=== PATIENT | male | born 1960 | race Caucasian/White ===

== ENCOUNTER 2016-07-30 05:16 | Inpatient (IN) | payer OTHER ==
[~2016-07-30] VITALS: Ht 177.8 cm; Wt 122.5 kg
[2016-07-30] VITALS (14 sets, daily range): BP systolic 120–158; BP diastolic 64–86
[~2016-07-30 05:16] MED LIST: CENTRUM SILVER1 EAC4 PO; HYDROCHLOROTHIA25 MG ORAL; LOSARTAN POTASS25 MG ORAL
[2016-07-30] MEDS ORDERED: Bacitracin 50000 Units Vial ONE ×2 (06:55→12:30)
--- NOTE | 2016-07-30 06:57 | Pre-Procedure Note/Attestation ---
Pre-Procedure Note/Attestation Complete Prior to Procedure Planned Procedure: right Procedure Narrative: End Stage Degenerative Joint Disease, Right knee. For Right Total Knee Resurfacing Indications for Procedure Pre-Operative Diagnosis: End Stage Degenerative Joint Disease, Right Knee Attestation I attest that I discussed the nature of the procedure; its benefits; risks and complications; and alternatives (and the risks and benefits of such alternatives ), prior to the procedure, with the patient (or the patient's legal lifeline representatives). I attest that, if there was a reasonable possibility of needing a blood transfusion, the patient (or the patient's legal lifeline representatives) was given the [facility] standardized written summary, pursuant to the [place] Blood Safety Act ([place] Health and Safety Code # 1645, as amended). I attest that I re-evaluated the patient just prior to the surgery and that there has been no change in the patient's H&P, except as documented below: SHELBY CARDOSO Jul 30, 2016 06:57
[2016-07-30] MEDS ORDERED: fentaNYL 100 mcg/2 mL IV ONE (07:00)
[2016-07-30] MEDS ORDERED: Midazolam 2mg/2ml Inj ONE (07:00)
[2016-07-30] MEDS ORDERED: LR 1000ml ONE (07:00)
[2016-07-30] MEDS ORDERED: Sterile Water Irrig 1000ml IRRIG ONE (07:00)
[2016-07-30] MEDS ORDERED: NS Irrig 1000ml ONE (07:00)
[2016-07-30] MEDS ORDERED: Propofol 10mg/ml 20ml IV ONE (07:00)
[2016-07-30] MEDS ORDERED: Sterile Water For Irrig 2000ml IRRIG ONE (07:00)
[2016-07-30] MEDS ORDERED: NS Irrig 2000ml IRRIG ONE (07:10)
--- NOTE | 2016-07-30 07:56 | Anethesia Preoperative Eval ---
Anesthesia Pre-op PMH/ROS General Date of Evaluation: Jul 30, 2016 Time of Evaluation: 07:00 Anesthesiologist: Yaya ASA Score: ASA 3 Mallampati Score Class I : Soft palate, uvula, fauces, pillars visible Class II: Soft palate, uvula, fauces visible Class III: Soft palate, base of uvula visible Class IV: Only hard plate visible Mallampati Classification: Class II Surgeon: Randi Diagnosis: OA right knee Surgical Procedure: Right TKR Family History: no anesthesia problems Allergies: Coded Allergies: NO KNOWN ALLERGIES (Verified Allergy, Unknown, 07/27/16) Medications: see eMAR Past Medical History Cardiovascular: Reports: HTN, Denies: CAD, DC, arrhythmia, other, valve dz Pulmonary: Denies: COPD, MARCELLUS, asthma, other Gastrointestinal/Genitourinary: Denies: CRI, ESRD, GERD, other Neurologic/Psychiatric: Denies: CVA, TIA, dementia, depression/anxiety, other Endocrine: Denies: DM, hypothyroidism, other, steroids HEENT: Denies: VENETIE (L), VENETIE (R), cataract (L), cataract (R), glaucoma, other Hematology/Immune: Denies: DVT, anemia, bleeding disorder, other Musculoskeletal/Integumentary: Reports: OA, Denies: DDD, DJD, RA, edema, other Other: obesity PMH Narrative: HTN, obesity, allergic rhinitis, OA PSxH Narrative: Lumbar surgery, knee scope Anesthesia Pre-op Phys. Exam Physician Exam Last Vital Signs Date Time Temp Pulse Resp B/P Pulse Ox O2 Delivery O2 Flow Rate FiO2 07/30/16 05:40 97.9 75 16 148/84 Room Air Constitutional: NAD Neurologic: CN 2-12 intact Cardiovascular: RRR, no M/R/G Respiratory: CTA Gastrointestinal: S/NT/ND Airway Exam Mallampati Score: Class II MO: full ROM: full Teeth: missing - Upper front Anesthesia Pre-op A/P Labs WNL Studies Pre-op Studies: EKG - NSr Risk Assessment & Plan Assessment: Obese, hypertensive male for TKR Plan: GA, LMA Status Change Before Surgery: No Pre-Antibiotics Drug: Ancef Given Within 1 Hr of Incision: Yes Time Given: 07:30 ARTIE GALVAN M.D. Jul 30, 2016 07:56
[2016-07-30] MEDS ORDERED: LR 1000ml 1,000 ML IVLG SCH (07:57)
--- NOTE | 2016-07-30 07:57 | Immediate Post-Op Evaluation ---
Immediate Post-Op Evalulation Immediate Post-Op Evalulation Procedure: Right TKR Date of Evaluation: Jul 30, 2016 Time of Evaluation: 10:00 IV Fluids: 1400 Estimated Blood Loss: 100 Urinary Output: 50 Blood Pressure Systolic: 143 Blood Pressure Diastolic: 83 Pulse Rate: 91 Respiratory Rate: 12 O2 Sat by Pulse Oximetry: 100 Temperature (Fahrenheit): 97.3 Pain Score (1-10): 0 Nausea: No Vomiting: No Complications No complication Patient Status: awake, patent, none Hydration Status: adequate Drug: Ancef 2GM Given Within 1 Hr of Incision: Yes Time Given: 07:30 ARTIE GALVAN M.D. Jul 30, 2016 07:57
[2016-07-30] MEDS ORDERED: Meperidine 25mg/ml Inj IV PRN (08:00)
[2016-07-30] MEDS ORDERED: Labetalol 5mg/ml 20ml vial IV PRN (08:00)
[2016-07-30] MEDS ORDERED: LORazepam Inj 2mg/ml 1ml IV PRN (08:00)
[2016-07-30] MEDS ORDERED: Hydromorphone 0.5mg/0.5ml inj IVP PRN (08:00)
[2016-07-30] MEDS ORDERED: LR 1000ml 1,000 ML IV SCH (08:00)
[2016-07-30] MEDS ORDERED: Rate Change PCA 1 Each MISC PRN (09:45)
[2016-07-30] MEDS ORDERED: Naloxone 0.4mg/ml Inj IVP PRN (09:45)
[2016-07-30] MEDS ORDERED: PCA HYDROmorphone 1mg/ml 30 ML IV PRN (09:45)
[2016-07-30] MEDS ORDERED: DiphenhydrAMINE 50mg/ml Inj IVP PRN (09:45)
[2016-07-30] MEDS ORDERED: LORazepam 1mg tab ORAL PRN (09:45)
--- NOTE | 2016-07-30 09:58 | Operative Note - PDOC ---
Operative Note Operative Note Chief Complaint: Right Knee Pain Pre-op Diagnosis: End Stage Degenerative Joint Disease, Right Knee Procedure: Right TKR Post-op Diagnosis: same as pre-op Operative Findings: consistent w/pre-op dx studies Surgeon: Randi Operations Consultant: JUANA Cardoso Anesthesiologist: Aristeo Anesthesia: general Specimen: yes Complications: none Condition: stable Estimated Blood Loss: minimal Drains: hemovac Implant(s) used?: Yes - Mya Natural Knee SHELBY CARDOSO Jul 30, 2016 09:58
--- NOTE | 2016-07-30 10:48 | Operative Note - Dictated ---
DATE OF OPERATION: 07/30/2016 SURGEON: Jerry Bryan M.D. DICTATION ENDED ABRUPTLY (INCOMPLETE DICTATION) Jerry Bryan M.D. DR: Kell JOB#: [id number] CC:
--- NOTE | 2016-07-30 11:18 | Operative Note - Dictated ---
DATE OF OPERATION: 07/30/2016 SURGEON: Jerry Bryan M.D. MECHANIC MARINE ENGINE: IRINA Hilario. ANESTHESIOLOGIST: Dr. Herrmann. ANESTHESIA: General endotracheal with arterial blood pressure monitoring. PREOPERATIVE DIAGNOSES: Posttraumatic arthritis, large osteochondral lesion, medial femoral condyle, Stover's weight bearing deformity and previous meniscectomy right knee. POSTOPERATIVE DIAGNOSES: Posttraumatic arthritis, large osteochondral lesion, medial femoral condyle, Stover's weight bearing deformity and previous meniscectomy right knee. OPERATIVE PROCEDURE: Total knee resurfacing arthroplasty right knee using a natural knee Filiberto with an # 1 7 mm all polyethylene cemented patella, and a size #3 ingrowth tibial base plate with 240 mm APR screws with a #4 ingrowth femur. There was a lateral release and a medium Hemovac drain used. The patient was prepped and draped in the supine position on the operating table. His leg was prepped and draped freely, was elevated, exsanguinated and a proximal tourniquet was inflated to 300 mmHg. A bolster was placed on the table to facilitate flexion during the procedure and a lateral post was also position to facilitate maintaining the knee in flexion without external rotation. The pelvis was neutralize by placing a sandbag posterior to the right hemipelvis. A medial parapatellar incision 5 inches length was made beginning along the closets and extending along the medial patella to the medial aspect of the patella ligament. Excision was carried down through the capsule and a lateral release was accomplished to allow the patella to be rotated 180 degrees on its distal insertion. Remnants of the fat PAD, which were quite inflamed and hypertrophic were removed. The posterior medial capsular ligaments were released semimembranosus and the superficial and deep medial collateral ligament at their attachment to the medial and posterior medial tibia. The patella was turned to 180 degrees and its articular surface was exposed by removing adherent marginal synovium. The patella was sized and a patellar cutting jig was used to take a minimal amount of articular surface bleeding more than 2/3 of the bony substance of the patella intact. Sizing the cut surface was size 1 patella, which was then templated and plained and anchoring drill holes were made. Trial reduction of the #1 patellar revealed good fit and good tracking. The distal femoral medullary canal was then cannulated after removing remnants of the meniscus medially and laterally and the ACL, PCL was left intact. The distal femoral medullary canal was cannulated and a guide was placed, and then the distal femoral extension cut was made accounting for weightbearing axis of rotation and slope. This car spun to that which had been templated on the weightbearing preoperative x-ray. The anterior, posterior chamfer and notch cuts were then made and a trial femoral prosthesis was positioned with good fit and good alignment. The tibia was then subluxed forward and all remnants of soft tissue were removed from its superficial surface. The tibial alignment jig was then used to account for weightbearing alignment rotation and slope. Once these three parameters were covered and checked with the outrigger, a proximal tibial cut was made. The centering punch and peripheral holes were then made and a trial tibial component was inserted with a 9 mm polyethylene. The patient had 20 degrees of flexion contracture preoperatively. He reached almost 0 degrees post resection with implant of the prosthetic components with smooth tracking and good stability. The tibia was then inserted without cement and anchored with 240 millimeter APR screws the polyethylene component was seated congruent 9 mm and was tapped into place. The femur was then inserted and again with a good fit, good contact and alignment, the knee was reduced and the patella was then cemented. All excess cement was removed and tracking and stability were checked. The tourniquet was released. Bleeders were coagulated. The medial capsule was closed with interrupted sutures of # 1 Vicryl. The subcutaneous and skin were closed in separate layers. The patient was placed in a bulky compression dressing, a medium Hemovac drain was left through the lateral release site. Blood loss was 100 mL estimated. The patient was returned recovery room in good condition. Jerry Bryan M.D. DR: Kell JOB#: [id number] CC: PEDRO
[2016-07-30] MEDS: Docusate 100mg cap ORAL SCH ×2 (12:10→18:02)
[2016-07-30] MEDS: Acetaminophen 500mg (ES) tab ORAL SCH ×2 (12:10→18:02)
[2016-07-30] MEDS: PCA shift volume MISC SCH ×2 (15:07→23:22)
[2016-07-30] MEDS: ceFAZolin sod 1 GM in D5W 55 ML IV SCH ×2 (16:02→23:50)
[2016-07-30] MEDS: Pericolace tab ORAL SCH (18:02)
[2016-07-31] VITALS (7 sets, daily range): BP systolic 115–134; BP diastolic 60–75
[2016-07-31] MEDS: PCA shift volume MISC SCH ×3 (07:06→23:00)
[2016-07-31] MEDS: ceFAZolin sod 1 GM in D5W 55 ML IV SCH ×2 (07:52→17:07)
[2016-07-31] MEDS: Pericolace tab ORAL SCH ×2 (08:32→18:21)
[2016-07-31] MEDS: Docusate 100mg cap ORAL SCH ×3 (08:32→18:21)
[2016-07-31] MEDS: Acetaminophen 500mg (ES) tab ORAL SCH ×3 (08:33→18:20)
--- NOTE | 2016-07-31 09:09 | Diagnostic Imaging Report ---
Indications: Postoperative Technique: Two views of the knee Comparison:None Findings: Two postoperative views of the right knee demonstrate total knee arthroplasty, good anatomic alignment of the prosthesis. There is a surgical drain in place. . There is postsurgical soft tissue air. Overlying skin paola. Impression: Postoperative right knee, no unusual features.
[2016-07-31] MEDS ORDERED: PCA HYDROmorphone 1mg/ml 30 ML IV PRN ×2 (09:45→22:00)
[2016-07-31 09:58] LABS: BASOPHILS % (AUTO) 1.1 % (0.0-2.0); EOSINOPHILS % (AUTO) 0.6 % (0.0-3.0); LYMPHOCYTES % (AUTO) 13.7 % (20.0-45.0); MEAN CORPUSCULAR HEMOGLOBIN 31.3 PG (27.0-31.0); MEAN CORPUSCULAR HGB CONC 34.1 G/DL (32.0-36.0); MEAN CORPUSCULAR VOLUME 92 FL (80-99); MEAN PLATELET VOLUME 8.6 FL (6.5-10.1); MONOCYTES % (AUTO) 11.9 % (1.0-10.0); NEUTROPHILS % (AUTO) 72.7 % (45.0-75.0); PLATELET COUNT 192 K/UL (150-450); RED BLOOD COUNT 4.27 M/UL (4.70-6.10); RED CELL DISTRIBUTION WIDTH 11.2 % (11.6-14.8); WHITE BLOOD COUNT 9.9 K/UL (4.8-10.8)
[2016-07-31] MEDS ORDERED: Losartan 25mg tab ORAL SCH (11:30)
[2016-07-31 19:17] LABS: TROPONIN I 1.03 ng/mL (<=0.30)
[2016-07-31 19:40] LABS: ABG ALLEN TEST POSITIVE; ABG BASE EXCESS 0.3; ABG PCO2 38.9 mmHg (35.0-45.0)
[2016-07-31] MEDS ORDERED: Aspirin EC 81mg tab ORAL SCH (20:30)
[2016-07-31] MEDS ORDERED: Enoxaparin 120 mg inj SUBQ SCH (21:00)
[2016-07-31] MEDS ORDERED: Naloxone 0.4mg/ml Inj IVP PRN (21:45)
[2016-07-31] MEDS ORDERED: DiphenhydrAMINE 50mg/ml Inj IVP PRN (21:45)
[2016-07-31] MEDS ORDERED: LORazepam 1mg tab ORAL PRN (21:45)
[2016-07-31 22:12] LABS: ANION GAP 21 (5-15); CALCIUM 8.4 mg/dL (8.6-10.2); CARBON DIOXIDE 22 mEQ/L (20-30); CHLORIDE 92 mEQ/L (98-107); CREATININE 1.1 mg/dL (0.7-1.2); GLOMERULAR FILTRATION RATE > 60 mL/min (>60); HEMOLYSIS 10; POTASSIUM 3.8 mEQ/L (3.4-4.9); SODIUM 135 mEQ/L (135-145)
[2016-07-31] MEDS: Aspirin EC 81mg tab ORAL SCH (22:13)
[2016-07-31] MEDS: Enoxaparin 120 mg inj SUBQ SCH (22:26)
[2016-07-31] MEDS ORDERED: Metoprolol 5mg/5ml Inj IVPB ONE (22:45)
[2016-07-31] MEDS: Metoprolol 50mg tab ORAL SCH (22:56)
[2016-08-01] VITALS (7 sets, daily range): BP systolic 98–119; BP diastolic 58–86
[2016-08-01] MEDS: ceFAZolin sod 1 GM in D5W 55 ML IV SCH ×4 (00:09→23:51)
[2016-08-01] MEDS ORDERED: Metoprolol Tartrate 10 MG in NS 55 ML IVPB ONE (00:15)
[2016-08-01 01:00] LABS: CREATININE 1.1 mg/dL (0.7-1.2); GLOMERULAR FILTRATION RATE > 60 mL/min (>60)
--- NOTE | 2016-08-01 01:17 | Consultation ---
DATE OF CONSULTATION: 07/31/2016 CARDIOLOGY CONSULTATION: CONSULTING PHYSICIAN: Frank Ballard M.D. REQUESTING PHYSICIANS: 1. Saleem Arriola M.D. 2. Jerry Bryan M.D. 3. Elpidio Schulz M.D. REASON FOR CONSULTATION: Postoperative evaluation for the patient with elevated troponin level. HISTORY OF PRESENT ILLNESS: This is a 56-year-old white male, postop day #1 following right total knee arthroplasty. He was ambulating today with therapy and became increasingly short of breath. He subsequently was noted to be hypoxic and tachycardic. He was placed back at bed rest and troponin level obtained, was 1.3. The patient denies any chest pain at rest however he remains hypoxic. PAST MEDICAL HISTORY: Notable for hypertension, status post lumbar laminectomy. ALLERGIES: None. MEDICATIONS: Reviewed and reconciled. SOCIAL HISTORY: Social alcohol. Former smoker. Occasional cigar use. REVIEW OF SYSTEMS: Otherwise noncontributory. PHYSICAL EXAMINATION: GENERAL: He is . He is in mild respiratory distress. VITAL SIGNS: Blood pressure is 120/70, pulse rate 140, and respiratory rate 24, and afebrile. LUNGS: With few rhonchi. CARDIAC: Regular rhythm. Rapid rate. Normal S1 and S2. ABDOMEN: Soft. EXTREMITIES: With trace edema. No calf tenderness or cords. DIAGNOSTIC DATA: EKG reveals sinus tachycardia, incomplete right bundle-branch block, and nonspecific ST-T changes. Compared to preoperative EKG, which revealed sinus rhythm with no abnormalities. LABORATORY DATA: White count is 9.9 and hemoglobin 13.4. Potassium is 3.8, BUN 18, and creatinine 1.1. IMPRESSION: This is a 56-year-old male, who is status post right knee arthroscopy and now has hypoxia, tachycardia, and an elevated troponin level. Primary considerations would include an acute myocardial infarction or pulmonary embolic event. PLAN: 1. Cardiac monitoring. 2. Beta-blockade. 3. Oral aspirin. 4. High-dose Lovenox. 5. Monitor electrolytes. 6. Serial troponin. 7. Echocardiogram. 8. We will follow. Frank Ballard M.D. DR: Rashaun JOB#: [id number] CC:
[2016-08-01 05:59] LABS: BASOPHILS % (AUTO) 0.9 % (0.0-2.0); EOSINOPHILS % (AUTO) 0.2 % (0.0-3.0); LYMPHOCYTES % (AUTO) 7.7 % (20.0-45.0); MEAN CORPUSCULAR HEMOGLOBIN 32.1 PG (27.0-31.0); MEAN CORPUSCULAR HGB CONC 34.3 G/DL (32.0-36.0); MEAN CORPUSCULAR VOLUME 94 FL (80-99); MONOCYTES % (AUTO) 12.6 % (1.0-10.0); NEUTROPHILS % (AUTO) 78.5 % (45.0-75.0); PLATELET COUNT 144 K/UL (150-450); RED BLOOD COUNT 3.59 M/UL (4.70-6.10); RED CELL DISTRIBUTION WIDTH 11.2 % (11.6-14.8); WHITE BLOOD COUNT 12.4 K/UL (4.8-10.8)
[2016-08-01 06:28] LABS: TROPONIN I 2.27 ng/mL (<=0.30)
[2016-08-01] MEDS: PCA shift volume MISC SCH (07:26)
[2016-08-01 07:28] LABS: ALANINE AMINOTRANSFERASE 13 U/L (3-41); ALBUMIN/GLOBULIN RATIO 1.2 (1.0-2.7); ANION GAP 17 (5-15); ASPARTATE AMINO TRANSFERASE 34 U/L (5-40); CARBON DIOXIDE 23 mEQ/L (20-30); CHLORIDE 93 mEQ/L (98-107); CHOLESTEROL 104 mg/dL (< 200); CHOLESTEROL/HDL RATIO 3.5 (3.3-4.4); GLOMERULAR FILTRATION RATE > 60 mL/min (>60); HEMOLYSIS 8; LDL CHOLESTEROL (CALC.) 57 mg/dL (60-99); MAGNESIUM 1.9 mg/dL (1.7-2.5); POTASSIUM 3.7 mEQ/L (3.4-4.9); SODIUM 133 mEQ/L (135-145); TOTAL PROTEIN 5.8 g/dL (6.6-8.7)
--- NOTE | 2016-08-01 08:01 | General Progress Note ---
Assessment/Plan Assessment/Plan post op NSTEMI PE respiratory insufficiency PLAN cardiology noted full dose lovenox monitor clinically await final CT result discuss with patient and surgery impression, plan, and exam edited and reviewed in detail care discussed with RN Subjective Allergies: Coded Allergies: NO KNOWN ALLERGIES (Verified Allergy, Unknown, 07/27/16) Subjective events noted being treated for PE and WA no distress at this time Objective Last 24 Hour Vital Signs Date Time Temp Pulse Resp B/P Pulse Ox O2 Delivery O2 Flow Rate FiO2 08/01/16 06:15 97.9 98 20 98/58 90 Room Air 08/01/16 04:00 15 08/01/16 04:00 98 08/01/16 04:00 97.9 98 20 98/58 90 Room Air 08/01/16 00:15 94 85/53 08/01/16 00:00 111 08/01/16 00:00 97.7 119 20 119/69 90 Room Air 07/31/16 23:53 17 07/31/16 22:56 126 117/65 07/31/16 22:50 126 117/65 07/31/16 22:00 150 07/31/16 21:42 94 Venturi Mask 10.0 45 07/31/16 21:00 Venturi Mask 10.0 45 07/31/16 20:00 17 07/31/16 20:00 97.6 128 18 120/60 98 Room Air 07/31/16 16:00 17 07/31/16 16:00 97.2 100 17 115/63 98 Room Air 07/31/16 12:14 98.1 100 18 118/72 100 Room Air 07/31/16 12:00 9 07/31/16 10:57 134/75 07/31/16 08:00 18 07/31/16 08:00 98.2 100 20 134/75 100 Room Air Intake and Output 07/31/16 08/01/16 19:00 07:00 Intake Total 960 ml 400 ml Output Total 400 ml Balance 960 ml 0 ml Intake Oral 960 ml IV Total 400 ml Output Urine Total 400 ml Laboratory Tests 07/31/16 09:50: White Blood Count 9.9, Red Blood Count 4.27L, Hemoglobin 13.4L, Hematocrit 39.2L , Mean Corpuscular Volume 92, Mean Corpuscular Hemoglobin 31.3H, Mean Corpuscular Hemoglobin Concent 34.1, Red Cell Distribution Width 11.2L, Platelet Count 192, Mean Platelet Volume 8.6, Neutrophils (%) (Auto) 72.7, Lymphocytes (%) (Auto) 13.7L, Monocytes (%) (Auto) 11.9H, Eosinophils (%) (Auto ) 0.6, Basophils (%) (Auto) 1.1 07/31/16 17:45: Arterial Blood pH 7.419, Arterial Blood Partial Pressure CO2 38.9, Arterial Blood Partial Pressure O2 57.1L, Arterial Blood HCO3 24.6, Arterial Blood Oxygen Saturation 90.7L, Arterial Blood Base Excess 0.3, Jere Test Positive 07/31/16 18:10: Sodium Level 135, Potassium Level 3.8, Chloride Level 92L, Carbon Dioxide Level 22, Anion Gap 21H, Blood Urea Nitrogen 18, Creatinine 1.1, Estimat Glomerular Filtration Rate > 60, Glucose Level 133H, Calcium Level 8.4L, Troponin I 1.03*H 08/01/16 04:00: White Blood Count 12.4H, Red Blood Count 3.59L, Hemoglobin 11.5L, Hematocrit 33.7L, Mean Corpuscular Volume 94, Mean Corpuscular Hemoglobin 32.1H, Mean Corpuscular Hemoglobin Concent 34.3, Red Cell Distribution Width 11.2L, Platelet Count 144L, Mean Platelet Volume 10.0, Neutrophils (%) (Auto) 78.5H, Lymphocytes (%) (Auto) 7.7L, Monocytes (%) (Auto) 12.6H, Eosinophils (%) (Auto) 0.2, Basophils (%) (Auto) 0.9, Sodium Level 133L, Potassium Level 3.7, Chloride Level 93L, Carbon Dioxide Level 23, Anion Gap 17H, Blood Urea Nitrogen 19, Creatinine 1.0, Estimat Glomerular Filtration Rate > 60, Glucose Level 156H, Calcium Level 8.0L, Troponin I 2.27*H, Magnesium Level 1.9, Total Bilirubin 0.7 , Aspartate Amino Transf (AST/SGOT) 34, Alanine Aminotransferase (ALT/SGPT) 13, Alkaline Phosphatase 55, Pro-B-Type Natriuretic Peptide 1162H, Total Protein 5.8L, Albumin 3.2L, Globulin 2.6, Albumin/Globulin Ratio 1.2, Triglycerides Level 85, Cholesterol Level 104, LDL Cholesterol 57L, HDL Cholesterol 30, Cholesterol/HDL Ratio 3.5 Height (Feet): 5 Height (Inches): 10.00 Weight (Pounds): 270 Objective WDWN NAD clear breath sounds bilaterally without rhonchi or wheeze [id number] without MRG NABS nontender no HSM no CCE nonfocal SONALI PUTNAM Aug 01, 2016 08:01
[2016-08-01] MEDS: Docusate 100mg cap ORAL SCH ×4 (08:31→18:29)
[2016-08-01] MEDS: Acetaminophen 500mg (ES) tab ORAL SCH ×3 (08:32→18:29)
--- NOTE | 2016-08-01 08:42 | Diagnostic Imaging Report ---
Indications: Chest pain Technique: Continuous helical CT imaging of the thorax was performed with automatic exposure control, following bolus intravenous administration of nonionic iodine contrast, on a Siemens sensation [address] scanner. Axial images reconstructed at 3 mm slice thickness and 1.5 mm interval. Coronal and sagittal images were reconstructed at 3 mm slice thickness. Coronal and sagittal two-dimensional maximum intensity projection and three-dimensional volume-rendered images were reconstructed on a stand alone workstation. CTDI volume(s): 13, 63, 39 mGy Total DLP: 1477 mGy-cm Findings: Comparison: None Multiple low-attenuation filling defects are present within multiple first and second order branches of both pulmonary arteries. Central pulmonary arteries patent without intraluminal filling defect and are not enlarged. Right ventricle appears larger in size than the left ventricle. There is a question of leftward displacement of the intraventricular septum. Heart is overall normal in size. No pericardial abnormality. No mediastinal or hilar enlarged lymph nodes other abnormal masses or fluid collections. Scattered arterial mural calcifications. Vascular nonaneurysmal. Small irregular pleural-based linear densities and dependent portions both lung bases. Lungs normally, symmetrically inflated and otherwise clear. No pleural abnormality. Chest wall soft tissues nonfocal. Imaged upper abdominal anatomy unremarkable. Disc marginal osteophytes scattered throughout thoracic spine. IMPRESSION: Bilateral pulmonary emboli with evidence of acute right heart strain. Latter feature denied in [facility] preliminary report, significant discrepancy. Attempts are being made to contact Dr. Arriola, requesting physician, by telephone at time of this dictation. Written discrepancy report sent to [facility] via their website. Pulmonary bibasal subsegmental atelectasis Mild arteriosclerosis Degenerative spondylosis
[2016-08-01] MEDS: Metoprolol 50mg tab ORAL SCH ×2 (08:59→21:41)
[2016-08-01] MEDS ORDERED: Losartan 25mg tab ORAL SCH (09:00)
[2016-08-01] MEDS ORDERED: Rate Change PCA 1 Each MISC PRN (09:00)
[2016-08-01] MEDS: Enoxaparin 120 mg inj SUBQ SCH ×2 (09:02→21:43)
[2016-08-01] MEDS: Pericolace tab ORAL SCH ×2 (09:02→18:30)
[2016-08-01] MEDS ORDERED: Norco 5mg/325mg tab ORAL PRN ×2 (09:45→13:20)
[2016-08-01] MEDS ORDERED: Norco 7.5mg/325mg tab ORAL PRN ×2 (09:45)
[2016-08-01] MEDS ORDERED: HYDROmorphone 1mg/ml Carpuject SUBQ PRN ×2 (10:00)
[2016-08-01] MEDS: DuoNeb 0.5-3(2.5)mg/3ml neb HHN PRN ×2 (10:05→22:14)
--- NOTE | 2016-08-01 13:36 | General Surgery Progress Note ---
General Surgery-Progress Note Subjective Procedure Performed Right TKR Additional Comments Right knee has decreased pain from immediate post op.Mild chest tightness. Objective Last 24 Hour Vital Signs Date Time Temp Pulse Resp B/P Pulse Ox O2 Delivery O2 Flow Rate FiO2 08/01/16 12:00 17 08/01/16 10:10 99 18 98 Nasal Cannula 2.0 08/01/16 10:06 100 18 96 Nasal Cannula 2.0 08/01/16 09:54 95 Nasal Cannula 2.0 28 08/01/16 09:54 Nasal Cannula 2.0 08/01/16 09:51 97.9 08/01/16 08:59 104/54 08/01/16 08:00 16 08/01/16 08:00 97.3 80 20 104/58 92 Room Air 08/01/16 06:15 97.9 98 20 98/58 90 Room Air 08/01/16 04:00 15 08/01/16 04:00 98 08/01/16 04:00 97.9 98 20 98/58 90 Room Air 08/01/16 00:15 94 85/53 08/01/16 00:00 111 08/01/16 00:00 97.7 119 20 119/69 90 Room Air 07/31/16 23:53 17 07/31/16 22:56 126 117/65 07/31/16 22:50 126 117/65 07/31/16 22:00 150 07/31/16 21:42 94 Venturi Mask 10.0 45 07/31/16 21:00 Venturi Mask 10.0 45 07/31/16 20:00 17 07/31/16 20:00 97.6 128 18 120/60 98 Room Air 07/31/16 16:00 17 07/31/16 16:00 97.2 100 17 115/63 98 Room Air I&O Intake and Output 07/31/16 08/01/16 19:00 07:00 Intake Total 960 ml 400 ml Output Total 400 ml Balance 960 ml 0 ml Intake Oral 960 ml IV Total 400 ml Output Urine Total 400 ml Dressing: dry Wound: clean Drains: hemovac Laboratory Tests Test 07/31/16 17:45 07/31/16 18:10 08/01/16 04:00 Arterial Blood pH 7.419 (7.350-7.450) Arterial Blood Partial Pressure CO2 38.9 mmHg (35.0-45.0) Arterial Blood Partial Pressure O2 57.1 mmHg (75.0-100.0) L Arterial Blood HCO3 24.6 mmol/L (22.0-26.0) Arterial Blood Oxygen Saturation 90.7 % (92.0-98.0) L Arterial Blood Base Excess 0.3 Jere Test Positive Sodium Level 135 mEQ/L (135-145) 133 mEQ/L (135-145) L Potassium Level 3.8 mEQ/L (3.4-4.9) 3.7 mEQ/L (3.4-4.9) Chloride Level 92 mEQ/L (98-107) L 93 mEQ/L (98-107) L Carbon Dioxide Level 22 mEQ/L (20-30) 23 mEQ/L (20-30) Anion Gap 21 (5-15) H 17 (5-15) H Blood Urea Nitrogen 18 mg/dL (7-23) 19 mg/dL (7-23) Creatinine 1.1 mg/dL (0.7-1.2) 1.0 mg/dL (0.7-1.2) Estimat Glomerular Filtration Rate > 60 mL/min (>60) > 60 mL/min (>60) Glucose Level 133 mg/dL (74-106) H 156 mg/dL (74-106) H Calcium Level 8.4 mg/dL (8.6-10.2) L 8.0 mg/dL (8.6-10.2) L Troponin I 1.03 ng/mL (<=0.30) *H 2.27 ng/mL (<=0.30) *H White Blood Count 12.4 K/UL (4.8-10.8) H Red Blood Count 3.59 M/UL (4.70-6.10) L Hemoglobin 11.5 G/DL (14.2-18.0) L Hematocrit 33.7 % (42.0-52.0) L Mean Corpuscular Volume 94 FL (80-99) Mean Corpuscular Hemoglobin 32.1 PG (27.0-31.0) H Mean Corpuscular Hemoglobin Concent 34.3 G/DL (32.0-36.0) Red Cell Distribution Width 11.2 % (11.6-14.8) L Platelet Count 144 K/UL (150-450) L Mean Platelet Volume 10.0 FL (6.5-10.1) Neutrophils (%) (Auto) 78.5 % (45.0-75.0) H Lymphocytes (%) (Auto) 7.7 % (20.0-45.0) L Monocytes (%) (Auto) 12.6 % (1.0-10.0) H Eosinophils (%) (Auto) 0.2 % (0.0-3.0) Basophils (%) (Auto) 0.9 % (0.0-2.0) Magnesium Level 1.9 mg/dL (1.7-2.5) Total Bilirubin 0.7 mg/dL (0.0-1.2) Aspartate Amino Transf (AST/SGOT) 34 U/L (5-40) Alanine Aminotransferase (ALT/SGPT) 13 U/L (3-41) Alkaline Phosphatase 55 U/L (40-129) Pro-B-Type Natriuretic Peptide 1162 pg/mL (0-125) H Total Protein 5.8 g/dL (6.6-8.7) L Albumin 3.2 g/dL (3.5-5.2) L Globulin 2.6 g/dL Albumin/Globulin Ratio 1.2 (1.0-2.7) Triglycerides Level 85 mg/dL (< 150) Cholesterol Level 104 mg/dL (< 200) LDL Cholesterol 57 mg/dL (60-99) L HDL Cholesterol 30 mg/dL (> 60) Cholesterol/HDL Ratio 3.5 (3.3-4.4) Additional Comments Patient suffered shortness of breath while out of bed with PT yesterday afternoon. Note events as outlined in Dr. Carreon consult. Dr. Cheung following (for Dr. Schulz) and Cardiology. Patient presently stable and comfortable. Will delay rehab of right knee for present. Family has been made aware of change in status. SHELBY CARDOSO Aug 01, 2016 13:36
--- NOTE | 2016-08-01 16:12 | Diagnostic Imaging Report ---
APPROVED REPORT CPT Code: 55695 Present Symptoms Lower Extremity Pain: Right Lower Extremity Edema: Right Comments: Technically difficult study. BILATERAL: Imaging reveals a patent deep venous system bilaterally. There is no evidence of thrombus within the femoral, popliteal or tibial segments. The greater saphenous veins are also within normal limits. Doppler indicates normal spontaneous flow within these segments. Technically difficult study.
[2016-08-01] MEDS: Aspirin EC 81mg tab ORAL SCH (21:41)
[2016-08-02 00:39] VITALS: BP 104/57
--- NOTE | 2016-08-02 02:48 | Progress Note ---
DATE: 08/01/2016 CARDIOLOGY PROGRESS NOTE SUBJECTIVE: The patient had shortness of breath and low range of blood pressure last night. CT angiogram confirmed acute pulmonary emboli. Troponin levels were elevated. OBJECTIVE: VITAL SIGNS: Blood pressure 98/58, pulse 96, respirations 20, and afebrile. LUNGS: Clear. CARDIAC: Regular rhythm and rate. Normal S1 and S2 with a fourth heart sound. ABDOMEN: Soft. EXTREMITIES: No edema. Surgical site with no bleeding noted. LABORATORY AND DIAGNOSTIC DATA: Echocardiogram revealed normal ejection fraction with evidence of pulmonary hypertension of moderate severity with PA systolic pressure of 46. There was no noted right ventricular failure. Labs show white count 12.4 and hemoglobin 11.5. Sodium is 133. Troponin is 2.2. Pro-natriuretic peptide is 1162. IMPRESSION: 1. Acute pulmonary embolus. 2. Acute myocardial infarction likely right ventricular pulmonary hypertension. 3. Acute diastolic congestive heart failure. 4. Critical condition following a right total knee arthroplasty. PLAN: 1. Continue beta-sarah. 2. Continue full anticoagulation. 3. Continue anti-platelet therapy with aspirin. 4. Avoid volume depletion in this clinical setting. 5. Follow up laboratory studies. 6. Repeat EKG pending. 7. Cardiac monitoring. Frank Ballard M.D. DR: FLO JOB#: [id number] CC:
[2016-08-02 04:00] VITALS: BP 115/70
[2016-08-02] MEDS ORDERED: DuoNeb 0.5-3(2.5)mg/3ml neb HHN PRN ×2 (04:15→16:15)
[2016-08-02] MEDS ORDERED: Norco 5mg/325mg tab ORAL PRN (05:30)
[2016-08-02] MEDS ORDERED: Norco 7.5mg/325mg tab ORAL PRN (05:45)
[2016-08-02 08:00] VITALS: BP 113/71
[2016-08-02] MEDS ORDERED: ceFAZolin sod 1 GM in D5W 55 ML IV SCH (08:00)
--- NOTE | 2016-08-02 08:47 | General Progress Note ---
Assessment/Plan Assessment/Plan post op NSTEMI PE respiratory status stable family history of clotting disorders PLAN cardiology noted full dose lovenox ? Xarelto monitor clinically chest CT result noted discuss with patient and will need cardiology clearance impression, plan, and exam edited and reviewed in detail care discussed with RN Subjective Allergies: Coded Allergies: NO KNOWN ALLERGIES (Verified Allergy, Unknown, 07/27/16) Subjective events noted being treated for PE and [place] no distress at this time wants to go home Objective Last 24 Hour Vital Signs Date Time Temp Pulse Resp B/P Pulse Ox O2 Delivery O2 Flow Rate FiO2 08/02/16 04:00 97.7 87 18 115/70 94 Room Air 08/02/16 00:39 98.2 82 20 104/57 93 Room Air 08/02/16 00:00 90 08/01/16 22:26 92 18 96 Room Air 21 08/01/16 22:13 94 20 92 Room Air 21 08/01/16 21:41 81 114/86 08/01/16 20:11 81 18 Room Air 21 08/01/16 20:08 93 Room Air 21 08/01/16 20:08 Room Air 08/01/16 20:00 97.7 90 20 114/86 92 Room Air 08/01/16 20:00 90 08/01/16 16:00 82 08/01/16 16:00 97.2 83 19 101/65 93 Room Air 08/01/16 13:30 97.9 08/01/16 12:00 97.9 86 20 114/66 90 Room Air 08/01/16 12:00 17 08/01/16 10:10 99 18 98 Nasal Cannula 2.0 08/01/16 10:06 100 18 96 Nasal Cannula 2.0 08/01/16 09:54 95 Nasal Cannula 2.0 28 08/01/16 09:54 Nasal Cannula 2.0 08/01/16 08:59 104/54 Intake and Output 08/01/16 08/02/16 19:00 07:00 Intake Total 1165 ml 1070 ml Output Total 42 ml Balance 1165 ml 1028 ml Intake Oral 360 ml IV Total 1165 ml 710 ml Drainage Total 42 ml # Voids 4 # Bowel Movements 1 Height (Feet): 5 Height (Inches): 10.00 Weight (Pounds): 270 Objective WDWN NAD clear breath sounds bilaterally without rhonchi or wheeze [id number] without MRG NABS nontender no HSM no CCE nonfocal SONALI PUTNAM Aug 02, 2016 08:47
[2016-08-02] MEDS ORDERED: Pericolace tab ORAL SCH (09:00)
[2016-08-02] MEDS ORDERED: Enoxaparin 120 mg inj SUBQ SCH (09:00)
[2016-08-02] MEDS ORDERED: Metoprolol 50mg tab ORAL SCH (09:00)
[2016-08-02] MEDS: Acetaminophen 500mg (ES) tab ORAL SCH ×2 (09:00→13:07)
[2016-08-02 09:36] LABS: BASOPHILS % (AUTO) 1.3 % (0.0-2.0); EOSINOPHILS % (AUTO) 0.5 % (0.0-3.0); LYMPHOCYTES % (AUTO) 16.1 % (20.0-45.0); MEAN CORPUSCULAR HEMOGLOBIN 32.2 PG (27.0-31.0); MEAN CORPUSCULAR HGB CONC 36.2 G/DL (32.0-36.0); MEAN CORPUSCULAR VOLUME 89 FL (80-99); MEAN PLATELET VOLUME 10.6 FL (6.5-10.1); MONOCYTES % (AUTO) 10.5 % (1.0-10.0); NEUTROPHILS % (AUTO) 71.7 % (45.0-75.0); PLATELET COUNT 174 K/UL (150-450); RED BLOOD COUNT 3.56 M/UL (4.70-6.10); RED CELL DISTRIBUTION WIDTH 10.8 % (11.6-14.8); WHITE BLOOD COUNT 9.9 K/UL (4.8-10.8)
[2016-08-02 09:46] LABS: ANION GAP 17 (5-15); CALCIUM 7.8 mg/dL (8.6-10.2); CARBON DIOXIDE 25 mEQ/L (20-30); CHLORIDE 94 mEQ/L (98-107); CREATININE 0.9 mg/dL (0.7-1.2); GLOMERULAR FILTRATION RATE > 60 mL/min (>60); HEMOLYSIS 4; MAGNESIUM 1.8 mg/dL (1.7-2.5); SODIUM 136 mEQ/L (135-145)
[2016-08-02] MEDS: Docusate 100mg cap ORAL SCH ×3 (09:54→17:45)
[2016-08-02 10:23] LABS: TROPONIN I 2.62 ng/mL (<=0.30)
[2016-08-02 12:00] VITALS: BP 110/62
[2016-08-02] MEDS: ceFAZolin sod 1 GM in D5W 55 ML IV SCH (15:52)
[2016-08-02 16:00] VITALS: BP 125/64
[2016-08-02] MEDS: Pericolace tab ORAL SCH (17:44)
[2016-08-02] MEDS ORDERED: Acetaminophen 500mg (ES) tab ORAL SCH (18:00)
[2016-08-02 20:00] VITALS: BP 137/77
[2016-08-02] MEDS: Aspirin EC 81mg tab ORAL SCH (20:46)
[2016-08-02] MEDS: Metoprolol 50mg tab ORAL SCH (20:46)
[2016-08-02] MEDS: Enoxaparin 120 mg inj SUBQ SCH (20:47)
[2016-08-02] MEDS ORDERED: Aspirin EC 81mg tab ORAL SCH (21:00)
[2016-08-03] VITALS: BP 126/74
[2016-08-03] MEDS: ceFAZolin sod 1 GM in D5W 55 ML IV SCH ×3 (00:27→17:05)
--- NOTE | 2016-08-03 03:48 | Progress Note ---
DATE: 08/02/2016 CARDIOLOGY PROGRESS NOTE SUBJECTIVE: The patient denies chest pain or shortness of breath although he has not done much activity. He continues to have an elevated troponin level now at 2.62. OBJECTIVE: VITAL SIGNS: Blood pressure 137/77, pulse 86, respiratory rate 20, and oxygen saturation on room air is 94% to 95%. NECK: Supple. LUNGS: Clear. CARDIAC: Regular. Normal S1 and S2 with a fourth heart sound. ABDOMEN: Soft. EXTREMITIES: No edema. Knee surgical site is without any signs of drainage. LABORATORY DATA: Potassium 3.0. Magnesium 1.8. Albumin 3.2. LDL cholesterol 57. Echocardiogram reviewed and repeated to evaluate the right ventricle, although slight right-sided enlargement is noted, function is grossly normal. IMPRESSION: 1. Acute pulmonary embolus. 2. Status post knee arthroplasty. 3. Right ventricular myocardial infarction suspected. 4. Pulmonary hypertension. 5. Mild protein-calorie malnutrition. 6. Hypokalemia. PLAN: 1. Cardiac monitoring. 2. Replace potassium. 3. Check magnesium. 4. Continue full anticoagulation. 5. Continue monitoring for the next 48 to 72 hours until troponin levels start decreasing. Until then, limited physical activity is readvised. Frank Ballard M.D. DR: KERRI JOB#: [id number] CC:
[2016-08-03 04:00] VITALS: BP 130/74
[2016-08-03 07:00] LABS: ALANINE AMINOTRANSFERASE 12 U/L (3-41); ALBUMIN/GLOBULIN RATIO 0.9 (1.0-2.7); ANION GAP 16 (5-15); ASPARTATE AMINO TRANSFERASE 31 U/L (5-40); CALCIUM 8.2 mg/dL (8.6-10.2); CARBON DIOXIDE 26 mEQ/L (20-30); CHLORIDE 99 mEQ/L (98-107); CREATININE 0.8 mg/dL (0.7-1.2); GLOMERULAR FILTRATION RATE > 60 mL/min (>60); HEMOLYSIS 1; POTASSIUM 3.1 mEQ/L (3.4-4.9); SODIUM 141 mEQ/L (135-145); TOTAL PROTEIN 5.7 g/dL (6.6-8.7)
[2016-08-03 07:39] LABS: TROPONIN I 0.32 ng/mL (<=0.30)
[2016-08-03 08:00] VITALS: BP 103/67
[2016-08-03] MEDS: Docusate 100mg cap ORAL SCH ×3 (08:29→18:00)
[2016-08-03] MEDS: Metoprolol 50mg tab ORAL SCH ×2 (08:30→21:12)
[2016-08-03] MEDS: Pericolace tab ORAL SCH ×2 (08:30→18:00)
[2016-08-03] MEDS: Enoxaparin 120 mg inj SUBQ SCH ×2 (08:31→21:13)
--- NOTE | 2016-08-03 08:55 | General Progress Note ---
Assessment/Plan Assessment/Plan post op NSTEMI PE respiratory status stable family history of clotting disorders PLAN cardiology noted await clearance full dose lovenox ? Xarelto monitor clinically chest CT result discussed discussed with surgeon discuss with patient and will need cardiology clearance impression, plan, and exam edited and reviewed in detail care discussed with RN Subjective Allergies: Coded Allergies: NO KNOWN ALLERGIES (Verified Allergy, Unknown, 07/27/16) Subjective events noted being treated for PE and [place] on tele Objective Last 24 Hour Vital Signs Date Time Temp Pulse Resp B/P Pulse Ox O2 Delivery O2 Flow Rate FiO2 08/03/16 08:30 92 130/74 08/03/16 04:00 98.2 82 20 130/74 95 Room Air 08/03/16 04:00 92 08/03/16 00:00 98.0 77 20 126/74 95 Room Air 08/03/16 00:00 75 08/03/16 00:00 98.0 77 20 126/74 95 Room Air 08/02/16 20:52 82 18 Room Air 21 08/02/16 20:46 86 137/77 08/02/16 20:00 86 08/02/16 20:00 98.4 86 20 137/77 94 Room Air 08/02/16 16:00 82 08/02/16 16:00 98.2 86 18 125/64 93 Room Air 08/02/16 12:00 98.2 87 18 110/62 93 Room Air 08/02/16 09:56 93 113/71 Intake and Output 08/02/16 08/03/16 19:00 07:00 Intake Total 665 ml 570 ml Output Total 0 ml 70 ml Balance 665 ml 500 ml Intake Oral 540 ml 300 ml IV Total 125 ml 270 ml Drainage Total 0 ml 70 ml # Voids 3 5 Laboratory Tests 08/02/16 09:00: White Blood Count 9.9, Red Blood Count 3.56L, Hemoglobin 11.5L, Hematocrit 31.8L , Mean Corpuscular Volume 89, Mean Corpuscular Hemoglobin 32.2H, Mean Corpuscular Hemoglobin Concent 36.2H, Red Cell Distribution Width 10.8L, Platelet Count 174, Mean Platelet Volume 10.6H, Neutrophils (%) (Auto) 71.7, Lymphocytes (%) (Auto) 16.1L, Monocytes (%) (Auto) 10.5H, Eosinophils (%) (Auto ) 0.5, Basophils (%) (Auto) 1.3, Sodium Level 136, Potassium Level 3.0L, Chloride Level 94L, Carbon Dioxide Level 25, Anion Gap 17H, Blood Urea Nitrogen 17, Creatinine 0.9, Estimat Glomerular Filtration Rate > 60, Glucose Level 156H , Calcium Level 7.8L, Magnesium Level 1.8, Troponin I 2.62*H 08/03/16 03:55: Sodium Level 141, Potassium Level 3.1L, Chloride Level 99, Carbon Dioxide Level 26, Anion Gap 16H, Blood Urea Nitrogen 14, Creatinine 0.8, Estimat Glomerular Filtration Rate > 60, Glucose Level 97, Calcium Level 8.2L, Magnesium Level 2.0 , Troponin I 0.32*H, Total Bilirubin 1.0, Aspartate Amino Transf (AST/SGOT) 31, Alanine Aminotransferase (ALT/SGPT) 12, Alkaline Phosphatase 83, Pro-B-Type Natriuretic Peptide 1813H, Total Protein 5.7L, Albumin 2.8L, Globulin 2.9, Albumin/Globulin Ratio 0.9L Height (Feet): 5 Height (Inches): 10.00 Weight (Pounds): 270 Objective WDWN NAD clear breath sounds bilaterally without rhonchi or wheeze [id number] without MRG NABS nontender no HSM no CCE nonfocal SONALI PUTNAM Aug 03, 2016 08:55
[2016-08-03 12:00] VITALS: BP 120/72
[2016-08-03] MEDS ORDERED: Lisinopril 10mg tab ORAL ONE (14:15)
[2016-08-03 16:00] VITALS: BP 133/73
--- NOTE | 2016-08-03 20:20 | Progress Note ---
DATE: 08/03/2016 CARDIOLOGY PROGRESS NOTE: SUBJECTIVE: The patient with no shortness of breath and ambulating in room. He has not done more activities in bad. the patient now relates a family history of factor 5 abnormalities which his father has and the patient was not aware of this until now. He has now been made aware that his father has been on Coumadin for treatment. OBJECTIVE: VITAL SIGNS: Blood pressure 130/74, pulse 77 to 92, sinus rhythm, occasional sinus arrhythmia, and afebrile. LUNGS: Clear. CARDIAC: Regular rhythm and rate. Normal S1, S2 with a fourth heart sound. ABDOMEN: Soft. EXTREMITIES: Trace edema. LABORATORY DATA: Troponin is down to 0.32. Pro-natriuretic peptide is 1800. Potassium is 3.1. IMPRESSION: 1. Pulmonary embolus. 2. Status post total knee replacement. 3. Hypomagnesemia. 4. Hypokalemia. 5. Acute diastolic congestive heart failure. 6. Acute myocardial infarction likely involving the right ventricle. 7. Replace potassium and magnesium. 8. Add angiotensin-converting enzyme inhibitor. Consider diuresis based on clinical parameters. 9. Full anticoagulation. 10. with respect to factor deficiency and optimal anticoagulant long-term. Frank Ballard M.D. DR: Sheryl JOB#: [id number] CC:
[2016-08-03 20:22] VITALS: BP 124/71
[2016-08-03] MEDS: Aspirin EC 81mg tab ORAL SCH (21:12)
[2016-08-04] VITALS: BP 131/66
[2016-08-04] MEDS: ceFAZolin sod 1 GM in D5W 55 ML IV SCH ×3 (00:14→17:03)
[2016-08-04] MEDS: Norco 7.5mg/325mg tab ORAL PRN ×2 (00:16→21:30)
[2016-08-04 08:00] VITALS: BP 127/78
[2016-08-04] MEDS: Lisinopril 10mg tab ORAL SCH (09:00)
[2016-08-04] MEDS: Pericolace tab ORAL SCH ×2 (09:08→18:11)
[2016-08-04] MEDS: Docusate 100mg cap ORAL SCH ×3 (09:10→18:11)
[2016-08-04] MEDS: Metoprolol 50mg tab ORAL SCH ×2 (09:11→21:00)
[2016-08-04] MEDS: Enoxaparin 120 mg inj SUBQ SCH (09:13)
[2016-08-04 12:00] VITALS: BP 119/77
[2016-08-04] MEDS ORDERED: Heparin 25,000u/D5W 500ml 500 ML IV SCH (15:30)
--- NOTE | 2016-08-04 15:36 | General Progress Note ---
Assessment/Plan Assessment/Plan post op NSTEMI PE respiratory status stable family history of clotting disorders PLAN cardiology noted await clearance full dose lovenox ? Xarelto; heme evaluation pending monitor clinically impression, plan, and exam edited and reviewed in detail care discussed with RN Subjective Allergies: Coded Allergies: NO KNOWN ALLERGIES (Verified Allergy, Unknown, 07/27/16) Subjective events noted being treated for PE and [place] on tele Objective Last 24 Hour Vital Signs Date Time Temp Pulse Resp B/P Pulse Ox O2 Delivery O2 Flow Rate FiO2 08/04/16 12:00 71 08/04/16 12:00 97.0 74 21 119/77 97 Room Air 08/04/16 09:11 88 127/78 08/04/16 09:00 127/78 08/04/16 08:00 96.3 88 20 127/78 99 Room Air 08/04/16 08:00 90 08/04/16 07:40 102 18 Room Air 08/04/16 03:36 72 08/04/16 01:15 98.4 08/04/16 00:00 98.2 75 20 131/66 96 Room Air 08/04/16 00:00 74 08/03/16 21:12 88 124/71 08/03/16 20:22 98.4 88 20 124/71 96 Room Air 08/03/16 19:30 Room Air 08/03/16 19:29 95 Room Air 08/03/16 19:19 88 08/03/16 19:03 89 18 Room Air 08/03/16 16:00 97.3 19 133/73 98 Room Air Intake and Output 08/03/16 08/04/16 19:00 07:00 Intake Total 545 ml 175 ml Balance 545 ml 175 ml Intake Oral 440 ml 120 ml IV Total 105 ml 55 ml # Voids 1 3 Height (Feet): 5 Height (Inches): 10.00 Weight (Pounds): 270 Objective WDWN NAD clear breath sounds bilaterally without rhonchi or wheeze [id number] without MRG NABS nontender no HSM no CCE nonfocal SONALI PUTNAM Aug 04, 2016 15:36
[2016-08-04 16:00] VITALS: BP 137/78
[2016-08-04 16:42] LABS: FERRITIN 620 ng/mL (10-230); PSA TOTAL 1.6 ng/mL (< 3.5)
[2016-08-04] MEDS ORDERED: Heparin 5000 units/ml inj IV ONE (16:45)
[2016-08-04 16:54] LABS: ALANINE AMINOTRANSFERASE 16 U/L (3-41); ALBUMIN/GLOBULIN RATIO 1.3 (1.0-2.7); ANION GAP 16 (5-15); ASPARTATE AMINO TRANSFERASE 31 U/L (5-40); CALCIUM 8.5 mg/dL (8.6-10.2); CARBON DIOXIDE 30 mEQ/L (20-30); CHLORIDE 93 mEQ/L (98-107); CREATININE 0.8 mg/dL (0.7-1.2); GLOMERULAR FILTRATION RATE > 60 mL/min (>60); LACTATE DEHYDROGENASE 274 U/L (135-230); POTASSIUM 3.1 mEQ/L (3.4-4.9); SODIUM 139 mEQ/L (135-145); TOTAL PROTEIN 5.8 g/dL (6.6-8.7)
[2016-08-04 17:12] LABS: INR 1.1 (0.9-1.1); PROTHROMBIN TIME 11.2 SEC (9.30-11.50)
[2016-08-04] MEDS ORDERED: Warfarin Sodium 7.5mg ORAL ONE (18:30)
[2016-08-04 19:45] LABS: HEMOLYSIS 2; IRON 37 ug/dL (59-158); TOTAL IRON BINDING CAPACITY 203 ug/dL (250-400)
[2016-08-04 20:00] VITALS: BP 109/69
[2016-08-04 20:02] LABS: BILIRUBIN,DIRECT 0.2 mg/dL (0.1-0.3)
[2016-08-04] MEDS: Aspirin EC 81mg tab ORAL SCH (21:14)
[2016-08-05] VITALS: BP 135/74
[2016-08-05] MEDS: Heparin 25,000u/D5W 500ml 500 ML IV SCH ×2 (01:09→13:18)
[2016-08-05] MEDS: Norco 5mg/325mg tab ORAL PRN ×4 (01:37→15:13)
[2016-08-05 05:21] LABS: BASOPHILS % (AUTO) 1.2 % (0.0-2.0); EOSINOPHILS % (AUTO) 1.2 % (0.0-3.0); INR 1.3 (0.9-1.1); LYMPHOCYTES % (AUTO) 15.1 % (20.0-45.0); MEAN CORPUSCULAR HEMOGLOBIN 32.4 PG (27.0-31.0); MEAN CORPUSCULAR HGB CONC 35.4 G/DL (32.0-36.0); MEAN CORPUSCULAR VOLUME 92 FL (80-99); MONOCYTES % (AUTO) 11.9 % (1.0-10.0); NEUTROPHILS % (AUTO) 70.7 % (45.0-75.0); PLATELET COUNT 211 K/UL (150-450); PROTHROMBIN TIME 13.4 SEC (9.30-11.50); RED BLOOD COUNT 3.46 M/UL (4.70-6.10); RED CELL DISTRIBUTION WIDTH 11.2 % (11.6-14.8); WHITE BLOOD COUNT 8.6 K/UL (4.8-10.8)
[2016-08-05 06:07] VITALS: BP 142/74
[2016-08-05 08:00] VITALS: BP 140/71
[2016-08-05 08:07] LABS: RHEUMATOID FACTOR SCREEN 19.5 IU/mL (0.0-13.9)
--- NOTE | 2016-08-05 08:12 | General Progress Note ---
Assessment/Plan Assessment/Plan post op NSTEMI PE respiratory status stable family history of clotting disorders PLAN cardiology noted await clearance on heparin and coumadin hypercoag work up monitor clinically dc once cleared impression, plan, and exam edited and reviewed in detail care discussed with RN Subjective Allergies: Coded Allergies: NO KNOWN ALLERGIES (Verified Allergy, Unknown, 07/27/16) Subjective events noted being treated for PE and [place] on tele seen by hematology and started coumadin Objective Last 24 Hour Vital Signs Date Time Temp Pulse Resp B/P Pulse Ox O2 Delivery O2 Flow Rate FiO2 08/05/16 07:18 86 17 Room Air 08/05/16 06:07 97.0 84 20 142/74 98 Room Air 08/05/16 03:40 80 08/05/16 00:00 98.2 82 20 135/74 96 Room Air 08/04/16 23:54 81 08/04/16 21:00 87 109/69 08/04/16 20:00 99.1 87 18 109/69 92 Room Air 08/04/16 19:50 95 18 Room Air 08/04/16 18:59 81 08/04/16 16:00 97.7 86 18 137/78 98 Room Air 08/04/16 15:55 84 08/04/16 12:00 71 08/04/16 12:00 97.0 74 21 119/77 97 Room Air 08/04/16 09:11 88 127/78 08/04/16 09:00 127/78 Intake and Output 08/04/16 08/05/16 19:00 07:00 Intake Total 537.089 ml 1060.484 ml Output Total 450 ml Balance 537.089 ml 610.484 ml Intake Oral 420 ml 600 ml IV Total 117.089 ml 460.484 ml Output Urine Total 450 ml # Voids 2 Laboratory Tests 08/04/16 15:50: Erythrocyte Sedimentation Rate 105H, Hemoglobin A [Pending], Hemoglobin A2 [ Pending], Hemoglobin C [Pending], Hemoglobin F () [Pending], Hemoglobin S [ Pending], Variant Hemoglobin [Pending], Hemoglobin Electrophoresis Interp [ Pending], Hemoglobin Interpretation [Pending], Hemoglobin Solubility [Pending], Prothrombin Time 11.2, Prothromb Time International Ratio 1.1, Activated Partial Thromboplast Time 31, D-Dimer 4190H, Lupus Anticoagulant [Pending], Lupus Anticoagulant PTT Baseline [Pending], Lupus Anticoag DRVVT Screen Ratio [ Pending], DRVVT Confirmation Interpretation [Pending], Hexagonal Phase Comment [ Pending], Protein C Activity [Pending], Protein S Activity [Pending], Anti- Thrombin III Activity [Pending], Factor V Mutation [Pending], Sodium Level 139, Potassium Level 3.1L, Chloride Level 93L, Carbon Dioxide Level 30, Anion Gap 16H , Blood Urea Nitrogen 10, Creatinine 0.8, Estimat Glomerular Filtration Rate > 60, Glucose Level 99, Calcium Level 8.5L, Iron Level 37L, Total Iron Binding Capacity 203L, Percent Iron Saturation 18, Unsaturated Iron Binding 166, Ferritin 620H, Total Bilirubin 1.1, Direct Bilirubin 0.2, Aspartate Amino Transf (AST/SGOT) 31, Alanine Aminotransferase (ALT/SGPT) 16, Alkaline Phosphatase 65, Lactate Dehydrogenase 274H, Total Protein 5.8L, Albumin 3.3L, Globulin 2.5, Albumin/Globulin Ratio 1.3, Alpha Fetoprotein [Pending], Carcinoembryonic Antigen 0.8, CA 15-3 Antigen [Pending], CA 19-9 Antigen 6.65, Prostate Specific Antigen 1.6, Free Prostate Specific Antigen [Pending], Percent Free Prostate Specific Ag [Pending], Prostate Specific Antigen Total [ Pending], Vitamin B12 Level 675, Folate [Pending], Rheumatoid Factor Screen 19.5H, Heparin-PF4 Antibody Screen [Pending], Hepatitis A IgM Antibody [Pending] , Hepatitis B Surface Antigen [Pending], Hepatitis B Core IgM Antibody [Pending] , Hepatitis C Antibody [Pending], HIV (1&2) Antibody Rapid Negative 08/04/16 23:50: Activated Partial Thromboplast Time 100H 08/05/16 03:55: Prothrombin Time 13.4H, Prothromb Time International Ratio 1.3H, White Blood Count 8.6, Red Blood Count 3.46L, Hemoglobin 11.2L, Hematocrit 31.7L, Mean Corpuscular Volume 92, Mean Corpuscular Hemoglobin 32.4H, Mean Corpuscular Hemoglobin Concent 35.4, Red Cell Distribution Width 11.2L, Platelet Count 211, Mean Platelet Volume 9.0, Neutrophils (%) (Auto) 70.7, Lymphocytes (%) (Auto) 15.1L, Monocytes (%) (Auto) 11.9H, Eosinophils (%) (Auto) 1.2, Basophils (%) ( Auto) 1.2 08/05/16 06:55: Activated Partial Thromboplast Time 77H Height (Feet): 5 Height (Inches): 10.00 Weight (Pounds): 270 Objective WDWN NAD clear breath sounds bilaterally without rhonchi or wheeze [id number] without MRG NABS nontender no HSM no CCE nonfocal SONALI PUTNAM Aug 05, 2016 08:12
[2016-08-05] MEDS: Docusate 100mg cap ORAL SCH ×3 (08:40→17:11)
[2016-08-05] MEDS: Pericolace tab ORAL SCH ×2 (08:40→17:11)
[2016-08-05] MEDS: Lisinopril 10mg tab ORAL SCH (08:40)
[2016-08-05] MEDS: Metoprolol 50mg tab ORAL SCH ×2 (08:41→20:35)
--- NOTE | 2016-08-05 11:09 | Consultation ---
DATE OF CONSULTATION: 08/04/2016 NOTE: "POOR AUDIO QUALITY" HEMATOLOGY/ONCOLOGY CONSULTATION CONSULTING PHYSICIAN: Donald Mora M.D. ATTENDING PHYSICIAN: Jerry Bryan M.D. and Elpidio Schulz M.D. REASON FOR CONSULTATION: Pulmonary emboli, on hypercoagulable state. CHIEF COMPLAINT/HISTORY OF PRESENT ILLNESS: Dear Dr. Bryan and Dr. Schulz, Today, I had an opportunity to see one of your patients, who as you are aware, is a 56-year-old delightful gentleman with past medical history remarkable for hypertension, osteoarthritis, and status post lumbar laminectomy. The patient ended up to have a right total knee arthroplasty and subsequently on postoperative day #1, developed bilateral pulmonary emboli. The patient in the background does have family history of blood clotting. During coagulation it was found the patient developed acute VA as well. Hematology service was called bilateral pulmonary emboli, possible hypercoagulable state, acute VA. PAST MEDICAL HISTORY: 1. Hypertension. 2. Degenerative joint disease. 3. Status post lumbar laminectomy. 4. Status post right side total knee replacement. FAMILY HISTORY: Positive for blood clots. SOCIAL HISTORY: Social alcohol consumption, history of four months smoking. Occasional cigar use. REVIEW OF SYSTEMS: General: The patient is not in any significant distress. . Respiratory: Mild shortness of breath on exertion. Gastrointestinal: The patient claims of constipation. Neuromuscular: The patient claims of muscle aches. PHYSICAL EXAMINATION: VITAL SIGNS: T-max 97 degrees Fahrenheit, respiratory rate 20, heart rate is 80, and blood pressure 130/83. HEENT: Head is normocephalic and atraumatic. NECK: Supple. No thyroid enlargement. No lymphadenopathy. LUNGS: Decreased breath sounds bilaterally with few rhonchi at the base. HEART: S1 and S2 regular. ABDOMEN: Soft and benign. No organomegaly present. Bowel sounds present. EXTREMITIES: No cyanosis, clubbing, or edema. LABORATORY DATA: WBC 9.9, hemoglobin 11.5, hematocrit 31.8, and platelet count 174,000. INR . Troponin level of 0.32. Creatinine of 0.8. IMPRESSION: 1. Bilateral pulmonary emboli. 2. Family history of blood clotting disorder. 3. Possible hypercoagulable state. 4. Possible underlying occult malignancy. 5. History of smoking. 6. Acute myocardial infarction. 7. Anticoagulation with heparin IV/Coumadin. 8. Hypertension. 9. Osteoarthritis/degenerative joint disease. 10. Status post lumbar laminectomy. 11. Failure to thrive. RECOMMENDATION: 1. Watch count. 2. Watch coagulopathy. 3. Anemia workup. 4. Hypercoagulable state workup. 5. Maintain INR between 2.5 and 3.5. 6. Discontinue heparin subcu. 7. Cardiology followup. 8. Pulmonary followup. 9. Skin care. 10. Nutrition. 11. Close followup. Donald Mora MD DR: [place] JOB#: [id number] CC:
[2016-08-05 12:00] VITALS: BP 138/77
--- NOTE | 2016-08-05 12:42 | General Progress Note ---
Assessment/Plan Assessment/Plan IMPRESSION: 1. Bilateral pulmonary emboli is on heparin gtt and coumadin 2. Family history of blood clotting disorder. 3. Possible hypercoagulable state. 4. Possible underlying occult malignancy. 5. History of smoking. 6. Acute myocardial infarction. 7. Anticoagulation with heparin IV/Coumadin. 8. Hypertension. 9. Osteoarthritis/degenerative joint disease. 10. Status post lumbar laminectomy. 11. Failure to thrive. RECOMMENDATION: 1. Watch count. 2. Watch coagulopathy. 3. Anemia workup reviewed 4. Hypercoagulable state workup pending 5. Maintain INR between 2.0-3.0 6. Discontinue heparin subcu. 7. Cardiology followup. 8. Pulmonary followup. 9. Skin care. 10. Nutrition. 11. Close followup. Thank you, Jay Mora MD Subjective Constitutional: Reports: no symptoms HEENT: Reports: no symptoms Cardiovascular: Reports: no symptoms Respiratory: Reports: no symptoms Gastrointestinal/Abdominal: Reports: no symptoms Genitourinary: Reports: no symptoms Neurologic/Psychiatric: Reports: no symptoms Endocrine: Reports: no symptoms Hematologic/Lymphatic: Reports: no symptoms Allergies: Coded Allergies: NO KNOWN ALLERGIES (Verified Allergy, Unknown, 07/27/16) Subjective stable, no fevers, some lower ext pain, on heparin gtt Objective Last 24 Hour Vital Signs Date Time Temp Pulse Resp B/P Pulse Ox O2 Delivery O2 Flow Rate FiO2 08/05/16 12:02 97.7 08/05/16 08:41 86 142/74 08/05/16 08:40 142/74 08/05/16 08:00 97.7 95 20 140/71 95 Room Air 08/05/16 08:00 99 08/05/16 07:18 86 17 Room Air 08/05/16 06:07 97.0 84 20 142/74 98 Room Air 08/05/16 03:40 80 08/05/16 00:00 98.2 82 20 135/74 96 Room Air 08/04/16 23:54 81 08/04/16 21:00 87 109/69 08/04/16 20:00 99.1 87 18 109/69 92 Room Air 08/04/16 19:50 95 18 Room Air 08/04/16 18:59 81 08/04/16 16:00 97.7 86 18 137/78 98 Room Air 08/04/16 15:55 84 Intake and Output 08/04/16 08/05/16 19:00 07:00 Intake Total 537.089 ml 1060.484 ml Output Total 450 ml Balance 537.089 ml 610.484 ml Intake Oral 420 ml 600 ml IV Total 117.089 ml 460.484 ml Output Urine Total 450 ml # Voids 2 Laboratory Tests 08/04/16 15:50: Erythrocyte Sedimentation Rate 105H, Hemoglobin A [Pending], Hemoglobin A2 [ Pending], Hemoglobin C [Pending], Hemoglobin F () [Pending], Hemoglobin S [ Pending], Variant Hemoglobin [Pending], Hemoglobin Electrophoresis Interp [ Pending], Hemoglobin Interpretation [Pending], Hemoglobin Solubility [Pending], Prothrombin Time 11.2, Prothromb Time International Ratio 1.1, Activated Partial Thromboplast Time 31, D-Dimer 4190H, Lupus Anticoagulant [Pending], Lupus Anticoagulant PTT Baseline [Pending], Lupus Anticoag DRVVT Screen Ratio [ Pending], DRVVT Confirmation Interpretation [Pending], Hexagonal Phase Comment [ Pending], Protein C Activity [Pending], Protein S Activity [Pending], Anti- Thrombin III Activity [Pending], Factor V Mutation [Pending], Sodium Level 139, Potassium Level 3.1L, Chloride Level 93L, Carbon Dioxide Level 30, Anion Gap 16H , Blood Urea Nitrogen 10, Creatinine 0.8, Estimat Glomerular Filtration Rate > 60, Glucose Level 99, Calcium Level 8.5L, Iron Level 37L, Total Iron Binding Capacity 203L, Percent Iron Saturation 18, Unsaturated Iron Binding 166, Ferritin 620H, Total Bilirubin 1.1, Direct Bilirubin 0.2, Aspartate Amino Transf (AST/SGOT) 31, Alanine Aminotransferase (ALT/SGPT) 16, Alkaline Phosphatase 65, Lactate Dehydrogenase 274H, Total Protein 5.8L, Albumin 3.3L, Globulin 2.5, Albumin/Globulin Ratio 1.3, Alpha Fetoprotein [Pending], Carcinoembryonic Antigen 0.8, CA 15-3 Antigen [Pending], CA 19-9 Antigen 6.65, Prostate Specific Antigen 1.6, Free Prostate Specific Antigen [Pending], Percent Free Prostate Specific Ag [Pending], Prostate Specific Antigen Total [ Pending], Vitamin B12 Level 675, Folate [Pending], Rheumatoid Factor Screen 19.5H, Heparin-PF4 Antibody Screen [Pending], Hepatitis A IgM Antibody [Pending] , Hepatitis B Surface Antigen [Pending], Hepatitis B Core IgM Antibody [Pending] , Hepatitis C Antibody [Pending], HIV (1&2) Antibody Rapid Negative 08/04/16 23:50: Activated Partial Thromboplast Time 100H 08/05/16 03:55: Prothrombin Time 13.4H, Prothromb Time International Ratio 1.3H, White Blood Count 8.6, Red Blood Count 3.46L, Hemoglobin 11.2L, Hematocrit 31.7L, Mean Corpuscular Volume 92, Mean Corpuscular Hemoglobin 32.4H, Mean Corpuscular Hemoglobin Concent 35.4, Red Cell Distribution Width 11.2L, Platelet Count 211, Mean Platelet Volume 9.0, Neutrophils (%) (Auto) 70.7, Lymphocytes (%) (Auto) 15.1L, Monocytes (%) (Auto) 11.9H, Eosinophils (%) (Auto) 1.2, Basophils (%) ( Auto) 1.2 08/05/16 06:55: Activated Partial Thromboplast Time 77H Height (Feet): 5 Height (Inches): 10.00 Weight (Pounds): 270 General Appearance: no apparent distress EENT: TMs normal Neck: supple Cardiovascular: regular rhythm Respiratory/Chest: lungs clear Abdomen: non tender Extremities: non-tender Edema: no edema noted Leg (L), no edema noted Leg (R) Edema: mild edema Neurologic: alert Skin: warm/dry Jay Mora Aug 05, 2016 12:42
[2016-08-05] MEDS ORDERED: KCl 10% 40mEq/30ml liquid ORAL SCH (14:00)
[2016-08-05] MEDS: KCl 10% 40mEq/30ml liquid ORAL SCH (14:09)
[2016-08-05] MEDS ORDERED: HYDROmorphone 1mg/ml Carpuject SUBQ PRN (15:15)
[2016-08-05 16:00] VITALS: BP 136/71
[2016-08-05] MEDS ORDERED: Warfarin Sodium 7.5mg ORAL SCH (17:00)
[2016-08-05] MEDS ORDERED: Warfarin Sodium 10mg ORAL SCH (17:00)
[2016-08-05] MEDS ORDERED: Tubing IV Secondary IV ONE ×2 (17:34→22:31)
[2016-08-05 20:00] VITALS: BP 127/72
[2016-08-05] MEDS ORDERED: KCl 10% 20 mEq/15ml liquid ORAL ONE (20:00)
--- NOTE | 2016-08-05 20:04 | Cardiology Report ---
APPROVED REPORT EXAM: Two-dimensional and M-mode echocardiogram with Doppler and color Doppler. INDICATION Right ventricular function This is an limited Echo study to evaluate Right Ventricle. Normal left ventricular chamber size, systolic function. Left ventricular ejection fraction estimated to be 65 %. Mioderate RV hypokinesis . Moderate righ ventricular enlargement. Moderate righ atrial enlargement. IVC dilated at 2.8cm with slight physiologic collapse suggestive of RA pressure 20 mmHg. Moderate tricuspid regurgitation. Tricuspid systolic velocities suggests peak right ventricular systolic pressure of 52 mmHg, consistent with moderate pulmonary hypertension.
--- NOTE | 2016-08-05 20:06 | Cardiology Report ---
APPROVED REPORT EXAM: Two-dimensional and M-mode echocardiogram with Doppler and color Doppler. INDICATION Acute myocard infarction M-Mode DIMENSIONS IVSd1.1 (0.7-1.1cm)Left Atrium (MM)2.7 (1.6-4.0cm) LVDd4.3 (3.5-5.6cm)Aortic Root2.7 (2.0-3.7cm) PWd0.9 (0.7-1.1cm)Aortic Cusp Exc.1.8 (1.5-2.0cm) LVDs3.2 (2.5-4.0cm) PWs1.3 cm Normal left ventricular chamber size, systolic function and wall motion. Left ventricular ejection fraction estimated to be 60-65 %. No evidence of left ventricular hypertrophy. RV hypokinesis No evidence of pericardial fat or effusion. Mild left atrial and right ventricular enlargement by 2D. Moderate right atrial enlargement by 2D. Focal aortic valve sclerosis with adequate cusp excursion Thickened mitral valve leaflets with normal excursion. Mild mitral annulus and aortic root calcification. Pulmonic valve not well visualized. Normal tricuspid valve structure. IVC dilated at 2.5cm with minimal physiologic collapse. RA pressure of 15mmHg. A color flow and spectral Doppler study was performed and revealed: No aortic regurgitation. No mitral regurgitation. Left ventricular diastolic dysfunction grade 1. Moderate tricuspid regurgitation. Tricuspid systolic velocities suggests peak right ventricular systolic pressure of 46-51 mmHg Consistent with moderate pulmonary hypertension.
[2016-08-05] MEDS: Aspirin EC 81mg tab ORAL SCH (20:35)
[2016-08-05] MEDS: Norco 7.5mg/325mg tab ORAL PRN (21:04)
--- NOTE | 2016-08-05 23:59 | Progress Note ---
DATE: 08/04/2016 CARDIOLOGY PROGRESS NOTE SUBJECTIVE: The patient has no chest pain or shortness of breath. His leg pain is controlled. Mobilization is being initiated today at a greater rate. OBJECTIVE: VITAL SIGNS: Blood pressure 127/78, pulse 88, respirations 21, afebrile, and oxygen saturation is 97% on room air. NECK: Supple. LUNGS: Clear. CARDIAC: Regular rhythm and rate. Normal S1 and S2 with no murmur. ABDOMEN: Soft. EXTREMITIES: Revealed 1+ edema on the right associated with the knee. LABORATORY DATA: Potassium 3.1. BUN 10, creatinine 0.8, and albumin 3.3. Pro-natriuretic peptide yesterday was 1800. IMPRESSION: 1. Acute pulmonary embolus. 2. Deep vein thrombosis. 3. Acute myocardial infarction. 4. Acute diastolic congestive heart failure. 5. Mild protein calorie malnutrition. 6. Status post right total knee arthroplasty. 7. Hypokalemia. PLAN: 1. Full anticoagulation. 2. Potassium replacement. 3. Advance anti-failure and anti-ischemic regimen. 4. Hematology/Oncology evaluation for optimal anticoagulant pain control. Frank Ballard M.D. ALPESH Villalobos JOB#: [id number] CC:
[2016-08-06] VITALS: BP 141/7
[2016-08-06] MEDS: Norco 7.5mg/325mg tab ORAL PRN ×4 (00:52→17:39)
[2016-08-06] MEDS: KCl 10% 40mEq/30ml liquid ORAL SCH ×2 (01:17→13:53)
--- NOTE | 2016-08-06 01:59 | Progress Note ---
DATE: 08/05/2016 CARDIOLOGY PROGRESS NOTE SUBJECTIVE: The patient's leg swelling has increased on the right. There is tightness in the compartment. He is able to move his toes. Pulses are palpable distally. He denies shortness of breath. He has been on IV heparin and initiated warfarin since yesterday. OBJECTIVE: VITAL SIGNS: Blood pressure 138/77, pulse 74, and respirations 20. NECK: Supple. LUNGS: Clear. CARDIAC: Regular. Normal S1 and S2. ABDOMEN: Soft. EXTREMITIES: With edema on the right and tightness of the thigh. IMPRESSION: 1. Concern over bleeding in the right surgical area. As such, we will hold warfarin and reassess continued IV heparin and pending surgical re-evaluation, pulmonary embolus, and DVT, on anticoagulation. 2. Acute myocardial infarction with stable angina, on anti-ischemic regimen. 3. Acute diastolic congestive heart failure, responding to cardiac regimen at this time and asymptomatic. PLAN: We will reassess following discussion with orthopedic surgeon. We will continue titration of cardiovascular medications based on clinical parameters. Frank Ballard M.D. DR: Wilfredo JOB#: [id number] CC:
[2016-08-06] MEDS: Heparin 25,000u/D5W 500ml 500 ML IV SCH (03:26)
[2016-08-06 04:00] VITALS: BP 145/70
[2016-08-06 05:07] LABS: MEAN CORPUSCULAR HEMOGLOBIN 32.7 PG (27.0-31.0); MEAN CORPUSCULAR HGB CONC 35.7 G/DL (32.0-36.0); MEAN CORPUSCULAR VOLUME 91 FL (80-99); RED BLOOD COUNT 3.07 M/UL (4.70-6.10); RED CELL DISTRIBUTION WIDTH 12.1 % (11.6-14.8); WHITE BLOOD COUNT 10.2 K/UL (4.8-10.8)
[2016-08-06 05:08] LABS: BASOPHILS % (AUTO) 0.7 % (0.0-2.0); EOSINOPHILS % (AUTO) 1.1 % (0.0-3.0); LYMPHOCYTES % (AUTO) 14.1 % (20.0-45.0); MEAN PLATELET VOLUME 8.1 FL (6.5-10.1); MONOCYTES % (AUTO) 10.1 % (1.0-10.0); NEUTROPHILS % (AUTO) 73.9 % (45.0-75.0); PLATELET COUNT 254 K/UL (150-450)
[2016-08-06 05:44] LABS: INR 2.6 (0.9-1.1); PROTHROMBIN TIME 27.5 SEC (9.30-11.50)
[2016-08-06 05:55] LABS: ALANINE AMINOTRANSFERASE 17 U/L (3-41); ALBUMIN/GLOBULIN RATIO 0.9 (1.0-2.7); ANION GAP 15 (5-15); ASPARTATE AMINO TRANSFERASE 30 U/L (5-40); CALCIUM 8.4 mg/dL (8.6-10.2); CARBON DIOXIDE 28 mEQ/L (20-30); CHLORIDE 94 mEQ/L (98-107); CREATININE 0.7 mg/dL (0.7-1.2); GLOMERULAR FILTRATION RATE > 60 mL/min (>60); HEMOLYSIS 2; MAGNESIUM 1.8 mg/dL (1.7-2.5); POTASSIUM 3.6 mEQ/L (3.4-4.9); SODIUM 137 mEQ/L (135-145); TOTAL PROTEIN 5.9 g/dL (6.6-8.7)
[2016-08-06] MEDS ORDERED: Heparin 25,000u/D5W 500ml 500 ML IV SCH ×2 (06:01→15:25)
[2016-08-06] MEDS ORDERED: Heparin 5000 units/ml inj IV ONE (06:15)
[2016-08-06 07:04] LABS: BILIRUBIN,DIRECT 0.2 mg/dL (0.1-0.3)
[2016-08-06 08:00] VITALS: BP 133/75
[2016-08-06] MEDS: Docusate 100mg cap ORAL SCH ×3 (08:53→17:38)
[2016-08-06] MEDS: Pericolace tab ORAL SCH ×2 (08:53→17:38)
[2016-08-06] MEDS: Metoprolol 50mg tab ORAL SCH ×2 (08:54→20:45)
[2016-08-06] MEDS: Lisinopril 10mg tab ORAL SCH (08:54)
--- NOTE | 2016-08-06 10:38 | General Surgery Progress Note ---
General Surgery-Progress Note Subjective Day of Surgery: Date of Visit: 08/05/2016 Procedure Performed Right TKR Additional Comments Right Knee more swollen and ecchymotic today. Good pulses and sensation. Strength 5/5 in low leg. Objective Last 24 Hour Vital Signs Date Time Temp Pulse Resp B/P Pulse Ox O2 Delivery O2 Flow Rate FiO2 08/06/16 08:54 133/75 08/06/16 08:54 101 133/75 08/06/16 08:00 97.9 101 20 133/75 97 Room Air 08/06/16 06:42 100 18 Room Air 08/06/16 04:00 97.7 91 20 145/70 95 Room Air 08/06/16 04:00 84 08/06/16 00:00 97.9 81 20 141/7 96 Room Air 08/05/16 20:35 92 127/72 08/05/16 20:00 98.1 92 16 127/72 96 Room Air 08/05/16 19:36 92 08/05/16 19:12 89 17 Room Air 08/05/16 16:00 97.5 81 21 136/71 95 Room Air 08/05/16 15:40 80 08/05/16 12:02 97.7 08/05/16 12:00 97.9 74 20 138/77 97 Room Air 08/05/16 12:00 78 I&O Intake and Output 08/05/16 08/06/16 19:00 07:00 Intake Total 691.09 ml 917.49 ml Output Total 1000 ml Balance 691.09 ml -82.51 ml Intake Oral 260 ml 680 ml IV Total 431.09 ml 237.49 ml Output Urine Total 1000 ml # Voids 2 3 Dressing: dry Wound: clean Drains: none Laboratory Tests Test 08/06/16 03:20 White Blood Count 10.2 K/UL (4.8-10.8) Red Blood Count 3.07 M/UL (4.70-6.10) L Hemoglobin 10.0 G/DL (14.2-18.0) L Hematocrit 28.0 % (42.0-52.0) L Mean Corpuscular Volume 91 FL (80-99) Mean Corpuscular Hemoglobin 32.7 PG (27.0-31.0) H Mean Corpuscular Hemoglobin Concent 35.7 G/DL (32.0-36.0) Red Cell Distribution Width 12.1 % (11.6-14.8) Platelet Count 254 K/UL (150-450) Mean Platelet Volume 8.1 FL (6.5-10.1) Neutrophils (%) (Auto) 73.9 % (45.0-75.0) Lymphocytes (%) (Auto) 14.1 % (20.0-45.0) L Monocytes (%) (Auto) 10.1 % (1.0-10.0) H Eosinophils (%) (Auto) 1.1 % (0.0-3.0) Basophils (%) (Auto) 0.7 % (0.0-2.0) Prothrombin Time 27.5 SEC (9.30-11.50) H Prothromb Time International Ratio 2.6 (0.9-1.1) H Activated Partial Thromboplast Time 42 SEC (23-33) H Sodium Level 137 mEQ/L (135-145) Potassium Level 3.6 mEQ/L (3.4-4.9) Chloride Level 94 mEQ/L (98-107) L Carbon Dioxide Level 28 mEQ/L (20-30) Anion Gap 15 (5-15) Blood Urea Nitrogen 9 mg/dL (7-23) Creatinine 0.7 mg/dL (0.7-1.2) Estimat Glomerular Filtration Rate > 60 mL/min (>60) Glucose Level 133 mg/dL (74-106) H Calcium Level 8.4 mg/dL (8.6-10.2) L Magnesium Level 1.8 mg/dL (1.7-2.5) Total Bilirubin 1.1 mg/dL (0.0-1.2) Direct Bilirubin 0.2 mg/dL (0.1-0.3) Aspartate Amino Transf (AST/SGOT) 30 U/L (5-40) Alanine Aminotransferase (ALT/SGPT) 17 U/L (3-41) Alkaline Phosphatase 60 U/L (40-129) Pro-B-Type Natriuretic Peptide 245 pg/mL (0-125) H Total Protein 5.9 g/dL (6.6-8.7) L Albumin 2.9 g/dL (3.5-5.2) L Globulin 3.0 g/dL Albumin/Globulin Ratio 0.9 (1.0-2.7) L Additional Comments Placed right leg above patients heart on elevated foot of bed and on multiple folded blankets to aide drainage. Instructed patient to maintain this position at all times. SHELBY CARDOSO Aug 06, 2016 10:38
--- NOTE | 2016-08-06 10:41 | General Surgery Progress Note ---
General Surgery-Progress Note Subjective Procedure Performed Right TKR Additional Comments This AM 08/06/2016, observed patient with leg off raised support (Folded blankets ). Objective Last 24 Hour Vital Signs Date Time Temp Pulse Resp B/P Pulse Ox O2 Delivery O2 Flow Rate FiO2 08/06/16 08:54 133/75 08/06/16 08:54 101 133/75 08/06/16 08:00 97.9 101 20 133/75 97 Room Air 08/06/16 06:42 100 18 Room Air 08/06/16 04:00 97.7 91 20 145/70 95 Room Air 08/06/16 04:00 84 08/06/16 00:00 97.9 81 20 141/7 96 Room Air 08/05/16 20:35 92 127/72 08/05/16 20:00 98.1 92 16 127/72 96 Room Air 08/05/16 19:36 92 08/05/16 19:12 89 17 Room Air 08/05/16 16:00 97.5 81 21 136/71 95 Room Air 08/05/16 15:40 80 08/05/16 12:02 97.7 08/05/16 12:00 97.9 74 20 138/77 97 Room Air 08/05/16 12:00 78 I&O Intake and Output 08/05/16 08/06/16 19:00 07:00 Intake Total 691.09 ml 917.49 ml Output Total 1000 ml Balance 691.09 ml -82.51 ml Intake Oral 260 ml 680 ml IV Total 431.09 ml 237.49 ml Output Urine Total 1000 ml # Voids 2 3 Extremities: edema - Less swelling this AM in Right Leg. But needs contineous elevation! Laboratory Tests Test 08/06/16 03:20 White Blood Count 10.2 K/UL (4.8-10.8) Red Blood Count 3.07 M/UL (4.70-6.10) L Hemoglobin 10.0 G/DL (14.2-18.0) L Hematocrit 28.0 % (42.0-52.0) L Mean Corpuscular Volume 91 FL (80-99) Mean Corpuscular Hemoglobin 32.7 PG (27.0-31.0) H Mean Corpuscular Hemoglobin Concent 35.7 G/DL (32.0-36.0) Red Cell Distribution Width 12.1 % (11.6-14.8) Platelet Count 254 K/UL (150-450) Mean Platelet Volume 8.1 FL (6.5-10.1) Neutrophils (%) (Auto) 73.9 % (45.0-75.0) Lymphocytes (%) (Auto) 14.1 % (20.0-45.0) L Monocytes (%) (Auto) 10.1 % (1.0-10.0) H Eosinophils (%) (Auto) 1.1 % (0.0-3.0) Basophils (%) (Auto) 0.7 % (0.0-2.0) Prothrombin Time 27.5 SEC (9.30-11.50) H Prothromb Time International Ratio 2.6 (0.9-1.1) H Activated Partial Thromboplast Time 42 SEC (23-33) H Sodium Level 137 mEQ/L (135-145) Potassium Level 3.6 mEQ/L (3.4-4.9) Chloride Level 94 mEQ/L (98-107) L Carbon Dioxide Level 28 mEQ/L (20-30) Anion Gap 15 (5-15) Blood Urea Nitrogen 9 mg/dL (7-23) Creatinine 0.7 mg/dL (0.7-1.2) Estimat Glomerular Filtration Rate > 60 mL/min (>60) Glucose Level 133 mg/dL (74-106) H Calcium Level 8.4 mg/dL (8.6-10.2) L Magnesium Level 1.8 mg/dL (1.7-2.5) Total Bilirubin 1.1 mg/dL (0.0-1.2) Direct Bilirubin 0.2 mg/dL (0.1-0.3) Aspartate Amino Transf (AST/SGOT) 30 U/L (5-40) Alanine Aminotransferase (ALT/SGPT) 17 U/L (3-41) Alkaline Phosphatase 60 U/L (40-129) Pro-B-Type Natriuretic Peptide 245 pg/mL (0-125) H Total Protein 5.9 g/dL (6.6-8.7) L Albumin 2.9 g/dL (3.5-5.2) L Globulin 3.0 g/dL Albumin/Globulin Ratio 0.9 (1.0-2.7) L JANAE,SHELBY P.A. Aug 06, 2016 10:41
--- NOTE | 2016-08-06 11:03 | General Progress Note ---
Assessment/Plan Assessment/Plan IMPRESSION: 1. Bilateral pulmonary emboli is on heparin gtt and coumadin, therapeutic INR 2- 3 2. Family history of blood clotting disorder. 3. Possible hypercoagulable state. 4. Possible underlying occult malignancy. 5. History of smoking. 6. Acute myocardial infarction. 7. Anticoagulation with heparin IV/Coumadin. 8. Hypertension. 9. Osteoarthritis/degenerative joint disease. 10. Status post lumbar laminectomy. 11. Failure to thrive. RECOMMENDATION: 1. Watch count. 2. Watch coagulopathy. 3. Anemia workup reviewed 4. Hypercoagulable state workup pending 5. Maintain INR 2 - 3.0 6. Discontinue heparin subcu. 7. Cardiology and Pulmonary followup. 8. Skin care. 9. Nutrition. 10. Close followup. Thank you, Jay Mora MD Subjective Constitutional: Reports: no symptoms HEENT: Reports: no symptoms Cardiovascular: Reports: no symptoms Respiratory: Reports: no symptoms Gastrointestinal/Abdominal: Reports: no symptoms Genitourinary: Reports: no symptoms Neurologic/Psychiatric: Reports: no symptoms Endocrine: Reports: no symptoms Hematologic/Lymphatic: Reports: anemia Allergies: Coded Allergies: NO KNOWN ALLERGIES (Verified Allergy, Unknown, 07/27/16) Subjective stable, no fevers noted, on coumadin Objective Last 24 Hour Vital Signs Date Time Temp Pulse Resp B/P Pulse Ox O2 Delivery O2 Flow Rate FiO2 08/06/16 08:54 133/75 08/06/16 08:54 101 133/75 08/06/16 08:00 97.9 101 20 133/75 97 Room Air 08/06/16 08:00 101 08/06/16 06:42 100 18 Room Air 08/06/16 04:00 97.7 91 20 145/70 95 Room Air 08/06/16 04:00 84 08/06/16 00:00 97.9 81 20 141/7 96 Room Air 08/05/16 20:35 92 127/72 08/05/16 20:00 98.1 92 16 127/72 96 Room Air 08/05/16 19:36 92 08/05/16 19:12 89 17 Room Air 08/05/16 16:00 97.5 81 21 136/71 95 Room Air 08/05/16 15:40 80 08/05/16 12:02 97.7 08/05/16 12:00 97.9 74 20 138/77 97 Room Air 08/05/16 12:00 78 Intake and Output 08/05/16 08/06/16 19:00 07:00 Intake Total 691.09 ml 917.49 ml Output Total 1000 ml Balance 691.09 ml -82.51 ml Intake Oral 260 ml 680 ml IV Total 431.09 ml 237.49 ml Output Urine Total 1000 ml # Voids 2 3 Laboratory Tests 08/06/16 03:20: White Blood Count 10.2, Red Blood Count 3.07L, Hemoglobin 10.0L, Hematocrit 28.0L, Mean Corpuscular Volume 91, Mean Corpuscular Hemoglobin 32.7H, Mean Corpuscular Hemoglobin Concent 35.7, Red Cell Distribution Width 12.1, Platelet Count 254, Mean Platelet Volume 8.1, Neutrophils (%) (Auto) 73.9, Lymphocytes (% ) (Auto) 14.1L, Monocytes (%) (Auto) 10.1H, Eosinophils (%) (Auto) 1.1, Basophils (%) (Auto) 0.7, Prothrombin Time 27.5H, Prothromb Time International Ratio 2.6H, Activated Partial Thromboplast Time 42H, Sodium Level 137, Potassium Level 3.6, Chloride Level 94L, Carbon Dioxide Level 28, Anion Gap 15, Blood Urea Nitrogen 9, Creatinine 0.7, Estimat Glomerular Filtration Rate > 60, Glucose Level 133H, Calcium Level 8.4L, Magnesium Level 1.8, Total Bilirubin 1.1 , Direct Bilirubin 0.2, Aspartate Amino Transf (AST/SGOT) 30, Alanine Aminotransferase (ALT/SGPT) 17, Alkaline Phosphatase 60, Pro-B-Type Natriuretic Peptide 245H, Total Protein 5.9L, Albumin 2.9L, Globulin 3.0, Albumin/Globulin Ratio 0.9L Height (Feet): 5 Height (Inches): 10.00 Weight (Pounds): 270 General Appearance: no apparent distress EENT: TMs normal Neck: supple Cardiovascular: regular rhythm Respiratory/Chest: lungs clear Abdomen: soft Extremities: non-tender Edema: 1+ Leg (L), 1+ Leg (R) Neurologic: alert Skin: warm/dry Jay Mora Aug 06, 2016 11:03
--- NOTE | 2016-08-06 11:44 | General Progress Note ---
Assessment/Plan Assessment/Plan post op NSTEMI PE respiratory status stable family history of clotting disorders PLAN cardiology noted await clearance coumadin with therapeutic INR hypercoag work up pending monitor clinically dc once cleared by all impression, plan, and exam edited and reviewed in detail care discussed with RN Subjective Allergies: Coded Allergies: NO KNOWN ALLERGIES (Verified Allergy, Unknown, 07/27/16) Subjective events noted on coumadin INR 2.6 seen by surgery Objective Last 24 Hour Vital Signs Date Time Temp Pulse Resp B/P Pulse Ox O2 Delivery O2 Flow Rate FiO2 08/06/16 08:54 133/75 08/06/16 08:54 101 133/75 08/06/16 08:00 97.9 101 20 133/75 97 Room Air 08/06/16 08:00 101 08/06/16 06:42 100 18 Room Air 08/06/16 04:00 97.7 91 20 145/70 95 Room Air 08/06/16 04:00 84 08/06/16 00:00 97.9 81 20 141/7 96 Room Air 08/05/16 20:35 92 127/72 08/05/16 20:00 98.1 92 16 127/72 96 Room Air 08/05/16 19:36 92 08/05/16 19:12 89 17 Room Air 08/05/16 16:00 97.5 81 21 136/71 95 Room Air 08/05/16 15:40 80 08/05/16 12:02 97.7 08/05/16 12:00 97.9 74 20 138/77 97 Room Air 08/05/16 12:00 78 Intake and Output 08/05/16 08/06/16 19:00 07:00 Intake Total 691.09 ml 917.49 ml Output Total 1000 ml Balance 691.09 ml -82.51 ml Intake Oral 260 ml 680 ml IV Total 431.09 ml 237.49 ml Output Urine Total 1000 ml # Voids 2 3 Laboratory Tests 08/06/16 03:20: White Blood Count 10.2, Red Blood Count 3.07L, Hemoglobin 10.0L, Hematocrit 28.0L, Mean Corpuscular Volume 91, Mean Corpuscular Hemoglobin 32.7H, Mean Corpuscular Hemoglobin Concent 35.7, Red Cell Distribution Width 12.1, Platelet Count 254, Mean Platelet Volume 8.1, Neutrophils (%) (Auto) 73.9, Lymphocytes (% ) (Auto) 14.1L, Monocytes (%) (Auto) 10.1H, Eosinophils (%) (Auto) 1.1, Basophils (%) (Auto) 0.7, Prothrombin Time 27.5H, Prothromb Time International Ratio 2.6H, Activated Partial Thromboplast Time 42H, Sodium Level 137, Potassium Level 3.6, Chloride Level 94L, Carbon Dioxide Level 28, Anion Gap 15, Blood Urea Nitrogen 9, Creatinine 0.7, Estimat Glomerular Filtration Rate > 60, Glucose Level 133H, Calcium Level 8.4L, Magnesium Level 1.8, Total Bilirubin 1.1 , Direct Bilirubin 0.2, Aspartate Amino Transf (AST/SGOT) 30, Alanine Aminotransferase (ALT/SGPT) 17, Alkaline Phosphatase 60, Pro-B-Type Natriuretic Peptide 245H, Total Protein 5.9L, Albumin 2.9L, Globulin 3.0, Albumin/Globulin Ratio 0.9L Height (Feet): 5 Height (Inches): 10.00 Weight (Pounds): 270 Objective WDWN NAD clear breath sounds bilaterally without rhonchi or wheeze [id number] without MRG NABS nontender no HSM no CCE right knee swelling noted nonfocal SONALI PUTNAM Aug 06, 2016 11:44
[2016-08-06 12:00] VITALS: BP 121/69
--- NOTE | 2016-08-06 12:45 | Cardiology Report ---
APPROVED REPORT EKG Measurement Heart [id number] NM [id number] Sinus tachycardia with short NM Incomplete right bundle branch block Abnormal ECG
[2016-08-06 16:00] VITALS: BP 117/65
[2016-08-06 20:00] VITALS: BP 117/65
[2016-08-06] MEDS: Aspirin EC 81mg tab ORAL SCH (20:45)
[2016-08-07] VITALS: BP 102/59
[2016-08-07] MEDS ORDERED: Warfarin Sodium 2.5mg ORAL ONE
[2016-08-07] MEDS: Norco 7.5mg/325mg tab ORAL PRN (00:21)
--- NOTE | 2016-08-07 02:19 | Progress Note ---
DATE: 08/06/2016 CARDIOLOGY PROGRESS NOTE SUBJECTIVE: The patient has no chest pain or shortness of breath. Right knee swelling has improved. He remains on anticoagulation. OBJECTIVE: VITAL SIGNS: Blood pressure 133/75, pulse 101, respirations 20, and afebrile. NECK: Supple. LUNGS: Clear. CARDIAC: Regular. Normal S1 and S2. ABDOMEN: Soft. EXTREMITIES: 1 to 2+ edema of right lower extremity at the knee with an ecchymosis and extending distally. LABORATORY DATA: INR 2.6. Hemoglobin 10. IMPRESSION: 1. Status post right total knee arthroplasty. 2. Pulmonary embolus. 3. Hypercoagulable state. 4. Acute myocardial infarction. 5. Secondary sinus tachycardia. PLAN: 1. Discontinue IV heparin. 2. warfarin to INR goal. 3. Continue beta-sarah. 4. Discontinue aspirin to decrease bleeding complication risk. Frank Ballard M.D. DR: LYLE JOB#: [id number] CC:
[2016-08-07] MEDS: KCl 10% 40mEq/30ml liquid ORAL SCH ×2 (02:24→13:15)
[2016-08-07 04:00] VITALS: BP 105/60
[2016-08-07 04:09] LABS: ANTI THROMBIN III ACTIVITY 103 % (75-135); PROTEIN C ACTIVITY 68 % (73-180); PROTEIN S ACTIVITY 74 % (63-140)
[2016-08-07 05:10] LABS: PSA % FREE 11.3 % (.); PSA FREE 0.18 ng/mL; PSA TOTAL 1.6 ng/mL (0.0-4.0)
[2016-08-07 05:48] LABS: BASOPHILS % (AUTO) 1.3 % (0.0-2.0); EOSINOPHILS % (AUTO) 1.7 % (0.0-3.0); LYMPHOCYTES % (AUTO) 16.8 % (20.0-45.0); MEAN CORPUSCULAR HEMOGLOBIN 32.5 PG (27.0-31.0); MEAN CORPUSCULAR HGB CONC 34.1 G/DL (32.0-36.0); MEAN CORPUSCULAR VOLUME 95 FL (80-99); MEAN PLATELET VOLUME 7.8 FL (6.5-10.1); MONOCYTES % (AUTO) 7.9 % (1.0-10.0); NEUTROPHILS % (AUTO) 72.4 % (45.0-75.0); PLATELET COUNT 280 K/UL (150-450); RED BLOOD COUNT 2.89 M/UL (4.70-6.10); RED CELL DISTRIBUTION WIDTH 12.5 % (11.6-14.8); WHITE BLOOD COUNT 10.6 K/UL (4.8-10.8)
[2016-08-07 05:58] LABS: INR 2.4 (0.9-1.1); PROTHROMBIN TIME 25.3 SEC (9.30-11.50)
--- NOTE | 2016-08-07 07:47 | General Progress Note ---
Assessment/Plan Assessment/Plan post op NSTEMI PE respiratory status stable family history of clotting disorders PLAN cardiology noted coumadin with therapeutic INR hypercoag work up pending; will follow up with heme after dc monitor clinically Rx given for coumadin 7.5 daily impression, plan, and exam edited and reviewed in detail care discussed with RN Subjective Allergies: Coded Allergies: NO KNOWN ALLERGIES (Verified Allergy, Unknown, 07/27/16) Subjective events noted on coumadin INR 2.4 Objective Last 24 Hour Vital Signs Date Time Temp Pulse Resp B/P Pulse Ox O2 Delivery O2 Flow Rate FiO2 08/07/16 07:36 89 20 Room Air 21 08/07/16 04:00 89 08/07/16 04:00 98.1 105 20 105/60 96 Room Air 08/07/16 00:00 98.2 90 20 102/59 97 Room Air 08/07/16 00:00 89 08/06/16 20:45 95 117/65 08/06/16 20:00 98.1 95 18 117/65 97 Room Air 08/06/16 20:00 94 08/06/16 19:30 98 20 Room Air 21 08/06/16 16:00 83 08/06/16 16:00 97.9 83 18 117/65 Room Air 08/06/16 12:00 98.2 76 18 121/69 97 Room Air 08/06/16 12:00 78 08/06/16 08:54 133/75 08/06/16 08:54 101 133/75 08/06/16 08:00 97.9 101 20 133/75 97 Room Air 08/06/16 08:00 101 Intake and Output 08/06/16 08/07/16 19:00 07:00 Intake Total 1091.2 ml 430 ml Output Total 550 ml Balance 541.2 ml 430 ml Intake Oral 700 ml 430 ml IV Total 391.2 ml Output Urine Total 550 ml # Voids 2 7 Laboratory Tests 08/07/16 03:50: White Blood Count 10.6, Red Blood Count 2.89L, Hemoglobin 9.4L, Hematocrit 27.5L , Mean Corpuscular Volume 95, Mean Corpuscular Hemoglobin 32.5H, Mean Corpuscular Hemoglobin Concent 34.1, Red Cell Distribution Width 12.5, Platelet Count 280, Mean Platelet Volume 7.8, Neutrophils (%) (Auto) 72.4, Lymphocytes (% ) (Auto) 16.8L, Monocytes (%) (Auto) 7.9, Eosinophils (%) (Auto) 1.7, Basophils (%) (Auto) 1.3, Prothrombin Time 25.3H, Prothromb Time International Ratio 2.4H Height (Feet): 5 Height (Inches): 10.00 Weight (Pounds): 270 Objective WDWN NAD clear breath sounds bilaterally without rhonchi or wheeze [id number] without MRG NABS nontender no HSM no CCE right knee swelling noted nonfocal SONALI PUTNAM Aug 07, 2016 07:47
[2016-08-07 08:00] VITALS: BP 116/64
[2016-08-07] MEDS: Pericolace tab ORAL SCH ×2 (08:28→18:46)
[2016-08-07] MEDS: Docusate 100mg cap ORAL SCH ×3 (08:29→18:47)
[2016-08-07] MEDS: Lisinopril 10mg tab ORAL SCH (08:29)
[2016-08-07] MEDS: Metoprolol 50mg tab ORAL SCH ×2 (08:29→22:02)
[2016-08-07 12:00] VITALS: BP 103/59
[2016-08-07 13:55] LABS: CA15-3 9.2 U/mL (0.0-25.0)
[2016-08-07 14:17] LABS: HEMOGLOBIN A 97.9 % (94.0-98.0); HEMOGLOBIN A2 2.1 % (0.7-3.1)
--- NOTE | 2016-08-07 14:52 | General Progress Note ---
Assessment/Plan Assessment/Plan IMPRESSION: 1. Bilateral pulmonary emboli is on coumadin, therapeutic INR 2-3. Will need to see in hematology clinic given family hx of clots. Currently w/o evidence of underlying malignancy 2. Family history of blood clotting disorder. 3. Possible hypercoagulable state. 4. Possible underlying occult malignancy. 5. History of smoking. 6. Acute myocardial infarction. 7. Anticoagulation with heparin IV/Coumadin. 8. Hypertension. 9. Osteoarthritis/degenerative joint disease. 10. Status post lumbar laminectomy. 11. Failure to thrive. RECOMMENDATION: 1. Watch count. 2. Watch coagulopathy. 3. Anemia workup reviewed 4. Hypercoagulable state workup pending 5. Maintain INR 2 - 3 6. Continue coumadin 7. Cardiology and Pulmonary recs 8. Skin care. 9. Nutrition. 10. Close followup. Thank you, aJy Mora MD Subjective Constitutional: Reports: no symptoms HEENT: Reports: no symptoms Cardiovascular: Reports: no symptoms Respiratory: Reports: no symptoms Gastrointestinal/Abdominal: Reports: poor fluid intake Genitourinary: Reports: no symptoms Neurologic/Psychiatric: Reports: anxiety Endocrine: Reports: no symptoms Hematologic/Lymphatic: Reports: anemia Allergies: Coded Allergies: NO KNOWN ALLERGIES (Verified Allergy, Unknown, 07/27/16) Subjective stable, no fevers overnight, on coumadin Objective Last 24 Hour Vital Signs Date Time Temp Pulse Resp B/P Pulse Ox O2 Delivery O2 Flow Rate FiO2 08/07/16 12:00 81 08/07/16 12:00 98.4 20 103/59 95 Room Air 08/07/16 08:52 111 08/07/16 08:29 105/60 08/07/16 08:29 89 105/60 08/07/16 08:00 97.7 107 20 116/64 95 Room Air 08/07/16 07:36 89 20 Room Air 21 08/07/16 04:00 89 08/07/16 04:00 98.1 105 20 105/60 96 Room Air 08/07/16 00:00 98.2 90 20 102/59 97 Room Air 08/07/16 00:00 89 08/06/16 20:45 95 117/65 08/06/16 20:00 98.1 95 18 117/65 97 Room Air 08/06/16 20:00 94 08/06/16 19:30 98 20 Room Air 21 08/06/16 16:00 83 08/06/16 16:00 97.9 83 18 117/65 Room Air Intake and Output 08/06/16 08/07/16 19:00 07:00 Intake Total 1091.2 ml 430 ml Output Total 550 ml Balance 541.2 ml 430 ml Intake Oral 700 ml 430 ml IV Total 391.2 ml Output Urine Total 550 ml # Voids 2 7 Laboratory Tests 08/07/16 03:50: White Blood Count 10.6, Red Blood Count 2.89L, Hemoglobin 9.4L, Hematocrit 27.5L , Mean Corpuscular Volume 95, Mean Corpuscular Hemoglobin 32.5H, Mean Corpuscular Hemoglobin Concent 34.1, Red Cell Distribution Width 12.5, Platelet Count 280, Mean Platelet Volume 7.8, Neutrophils (%) (Auto) 72.4, Lymphocytes (% ) (Auto) 16.8L, Monocytes (%) (Auto) 7.9, Eosinophils (%) (Auto) 1.7, Basophils (%) (Auto) 1.3, Prothrombin Time 25.3H, Prothromb Time International Ratio 2.4H Height (Feet): 5 Height (Inches): 10.00 Weight (Pounds): 270 General Appearance: no apparent distress EENT: normal ENT inspection Neck: supple Cardiovascular: normal rate Respiratory/Chest: lungs clear Abdomen: non tender Extremities: non-tender Edema: no edema noted Leg (L), no edema noted Leg (R) Edema: mild edema Neurologic: alert Skin: warm/dry Jay Mora Aug 07, 2016 14:52
[2016-08-07 16:00] VITALS: BP 120/62
[2016-08-07 20:00] VITALS: BP 114/57
[2016-08-07] MEDS ORDERED: Warfarin Sodium 4mg ORAL ONE (22:30)
--- NOTE | 2016-08-07 23:59 | Progress Note ---
DATE: 08/07/2016 CARDIOLOGY PROGRESS NOTE SUBJECTIVE: Discharge planning in progress. Pain is controlled in his right leg. No signs of bleeding. Less swelling is noted. OBJECTIVE: VITAL SIGNS: Blood pressure 103/59, respirations 20, afebrile, heart rate 81 to 111, and oxygen saturation on room air 95%. LUNGS: With good breath sounds. No wheezing. CARDIAC: Regular rhythm and rate. Normal S1 and S2. ABDOMEN: Soft. EXTREMITIES: No edema other than right leg. LABORATORY DATA: INR is 2.4. IMPRESSION: Status post right knee surgery with postoperative DVT and pulmonary embolus complicated by a non ST-elevation myocardial infarction likely involving the right ventricle. Presently, hemodynamically stable with a therapeutic INR and anemia due to blood loss. PLAN: 1. Warfarin therapy to INR goal of 2.5 to 3. 2. Continue beta-sarah. 3. Discontinue angiotensin-converting enzyme inhibitor, if blood pressure trend continues to be low. Frank Ballard M.D. DR: FLO JOB#: [id number] CC:
[2016-08-08] VITALS: BP 104/60
[2016-08-08] MEDS: KCl 10% 40mEq/30ml liquid ORAL SCH ×2 (02:53→13:20)
[2016-08-08 04:00] VITALS: BP 110/60
[2016-08-08 05:12] LABS: INR 2.1 (0.9-1.1)
[2016-08-08 08:00] VITALS: BP 115/60
[2016-08-08] MEDS: Docusate 100mg cap ORAL SCH ×3 (08:37→17:17)
[2016-08-08] MEDS: Lisinopril 10mg tab ORAL SCH (08:38)
[2016-08-08] MEDS: Pericolace tab ORAL SCH ×2 (08:38→16:13)
[2016-08-08] MEDS: Metoprolol 50mg tab ORAL SCH (08:38)
--- NOTE | 2016-08-08 09:45 | General Progress Note ---
Assessment/Plan Assessment/Plan post op NSTEMI PE respiratory status stable family history of clotting disorders PLAN cardiology noted coumadin with therapeutic INR hypercoag work up monitor clinically Rx given for coumadin 7.5 daily await arrangement for home health per ortho prior to dc impression, plan, and exam edited and reviewed in detail care discussed with RN Subjective Allergies: Coded Allergies: NO KNOWN ALLERGIES (Verified Allergy, Unknown, 07/27/16) Subjective events noted on coumadin INR therapeutic Objective Last 24 Hour Vital Signs Date Time Temp Pulse Resp B/P Pulse Ox O2 Delivery O2 Flow Rate FiO2 08/08/16 08:38 115/60 08/08/16 08:38 90 115/60 08/08/16 08:00 109 08/08/16 08:00 98.1 90 21 115/60 98 Room Air 08/08/16 06:45 88 20 Room Air 21 08/08/16 04:02 83 08/08/16 04:00 98.5 81 15 110/60 81 Room Air 08/08/16 00:00 98.8 81 14 104/60 81 Room Air 08/07/16 23:57 83 08/07/16 22:02 104 114/57 08/07/16 20:11 104 08/07/16 20:00 99.3 66 19 114/57 92 Room Air 08/07/16 19:00 91 20 Room Air 21 08/07/16 16:00 98.1 94 18 120/62 97 Room Air 08/07/16 15:51 95 08/07/16 12:00 81 08/07/16 12:00 98.4 20 103/59 95 Room Air Intake and Output 08/07/16 08/08/16 19:00 07:00 Intake Total 900 ml 700 ml Balance 900 ml 700 ml Intake Oral 900 ml 700 ml # Voids 3 # Bowel Movements 1 Laboratory Tests 08/08/16 04:05: Prothrombin Time 22.0H, Prothromb Time International Ratio 2.1H Height (Feet): 5 Height (Inches): 10.00 Weight (Pounds): 270 Objective WDWN NAD clear breath sounds bilaterally without rhonchi or wheeze [id number] without MRG NABS nontender no HSM no CCE right knee swelling noted nonfocal SONALI PUTNAM Aug 08, 2016 09:45
[2016-08-08 12:00] VITALS: BP 100/61
[2016-08-08 16:00] VITALS: BP 108/58
[2016-08-08] MEDS: Norco 7.5mg/325mg tab ORAL PRN (16:15)
--- NOTE | 2016-08-08 17:38 | General Progress Note ---
Assessment/Plan Assessment/Plan IMPRESSION: 1. Bilateral pulmonary emboli is on coumadin, therapeutic INR 2-3. Will need to see in hematology clinic given family hx of clots. Currently w/o evidence of underlying malignancy 2. Family history of blood clotting disorder. 3. Possible hypercoagulable state. 4. Possible underlying occult malignancy. 5. History of smoking. 6. Acute myocardial infarction. 7. Anticoagulation with heparin IV/Coumadin. 8. Hypertension. 9. Osteoarthritis/degenerative joint disease. 10. Status post lumbar laminectomy. 11. Failure to thrive. RECOMMENDATION: 1. Monitor counts 2. Watch coagulopathy. 3. Anemia workup reviewed 4. Hypercoagulable state workup pending 5. Maintain INR 2 - 3 6. Continue coumadin 7. Cardiology and Pulmonary recs 8. Skin care. 9. Nutrition. 10. Close followup. Thank you, Jay Mora MD Subjective Constitutional: Reports: no symptoms HEENT: Reports: no symptoms Cardiovascular: Reports: no symptoms Respiratory: Reports: no symptoms Gastrointestinal/Abdominal: Reports: no symptoms Genitourinary: Reports: no symptoms Neurologic/Psychiatric: Reports: no symptoms Endocrine: Reports: no symptoms Hematologic/Lymphatic: Reports: anemia Allergies: Coded Allergies: NO KNOWN ALLERGIES (Verified Allergy, Unknown, 07/27/16) Subjective no change, no fevers overnight, on coumadin Objective Last 24 Hour Vital Signs Date Time Temp Pulse Resp B/P Pulse Ox O2 Delivery O2 Flow Rate FiO2 08/08/16 17:15 98.5 08/08/16 16:00 93 08/08/16 16:00 98.5 93 18 108/58 98 Room Air 08/08/16 12:00 77 08/08/16 12:00 98.2 77 21 100/61 98 Room Air 08/08/16 08:38 115/60 08/08/16 08:38 90 115/60 08/08/16 08:00 109 08/08/16 08:00 98.1 90 21 115/60 98 Room Air 08/08/16 06:45 88 20 Room Air 21 08/08/16 04:02 83 08/08/16 04:00 98.5 81 15 110/60 81 Room Air 08/08/16 00:00 98.8 81 14 104/60 81 Room Air 08/07/16 23:57 83 08/07/16 22:02 104 114/57 2/14/17 20:11 104 08/07/16 20:00 99.3 66 19 114/57 92 Room Air 08/07/16 19:00 91 20 Room Air 21 Intake and Output 08/07/16 08/08/16 19:00 07:00 Intake Total 900 ml 700 ml Balance 900 ml 700 ml Intake Oral 900 ml 700 ml # Voids 3 # Bowel Movements 1 Laboratory Tests 08/08/16 04:05: Prothrombin Time 22.0H, Prothromb Time International Ratio 2.1H Height (Feet): 5 Height (Inches): 10.00 Weight (Pounds): 270 General Appearance: alert EENT: TMs normal Neck: supple Cardiovascular: normal rate, regular rhythm Respiratory/Chest: normal breath sounds Abdomen: non tender Extremities: non-tender Edema: 1+ Leg (L), 1+ Leg (R) Edema: mild edema Neurologic: alert Skin: normal pigmentation Jay Mora Aug 08, 2016 17:38
--- NOTE | 2016-08-09 02:19 | Progress Note ---
DATE: 08/08/2016 CARDIOLOGY PROGRESS NOTE SUBJECTIVE: The patient has no chest pain. No shortness of breath. His INR is 2.1. His left knee pain is under control. OBJECTIVE: NECK: Supple. LUNGS: Clear. Bilateral breath sounds. CARDIAC: Regular. Normal S1, S2. No murmur. EXTREMITIES: Mild edema on the right knee region only. LABORATORY DATA: INR is 2.1. IMPRESSION: 1. Status post right total knee arthroplasty. 2. Postoperative deep venous thrombosis and pulmonary embolus. 3. 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 PLAN: Outpatient followup. Anticipate need for at least 5 mg Coumadin daily, will need close monitoring of INR and adjustments based on INR results. Once more functional, stress test has been recommended to the patient for assessment of coronary flow reserve. Frank Ballard M.D. DR: IVANA JOB#: [id number] CC:
--- NOTE | 2016-08-09 18:10 | Discharge Summary ---
Discharge Summary Hospital Course Date of Admission Jul 30, 2016 at 05:16 Date of Discharge Aug 08, 2016 at 17:12 Admitting Diagnosis HPI Navarro Ngo is a 56 year old male who was admitted on Jul 30, 2016 at 05:16 for Osteoarthritis Right Knee Hospital Course [id number] Discharge Discharge Disposition Patient was discharged to Home with Home Health(06) Discharge Diagnoses: Aleena Encarnacion NP Aug 09, 2016 18:10
--- NOTE | 2016-08-10 02:39 | Discharge Summary 2 SIG ---
DATE OF ADMISSION: 07/30/2016 DATE OF DISCHARGE: 08/08/2016 SURGEON: Jerry Bryan M.D. CONSULTANTS: 1. Frank Ballard M.D. 2. Donald Mora M.D. BRIEF HOSPITAL COURSE: The patient is a 56-year-old male who was injured while at work. The date of injury was 07/17/2016 as a result, he injured his right knee. He also has numbness of the knee intermittently. The patient underwent following modalities including arthroscopy of the right knee, physical therapy, and pain management. However, the patient reports pain with prolonged standing, walking, sitting, and unable to sleep through the night due to pain and discomfort. On 07/30/2016, he underwent right total knee replacement. Following day, on postop day 1, he was ambulating with physical therapy and the patient became increasingly short of breath. He was noted to be hypoxic and tachycardic and was placed back at bedrest. Dr Ballard was consulted. Labs showed elevated troponin of 1.3. Chest CTA was done and showed bilateral pulmonary emboli with evidence of acute right heart strain. He was given full anticoagulation with Lovenox and antiplatelet therapy with aspirin. ProBNP was elevated to 1162. Echocardiogram revealed normal ejection fraction with evidence of pulmonary hypertension of moderate severity and PA systolic pressure of 46. Dr. Mora was consulted. The patient has a family history of blood disorder secondary to factor 5 deficiency. He was started on IV heparin and Coumadin. Troponin down trending. There was noted swelling on the right knee. The patient was advised leg elevation. His knee pain had been under control with less swelling of the knee. IV heparin was discontinued. INR was within goal. He was eventually discharged home with home health. FINAL DIAGNOSES: 1. Status post right total knee replacement. 2. Non-ST elevated myocardial infarction. 3. Acute pulmonary emboli. 4. Family history of clotting disorder. 5. Hypercoagulable state secondary to Coumadin use. 6. Hypertension. 7. Acute diastolic congestive heart failure. Elpidio Schulz M.D. I have been assigned to dictate discharge summary on this account and I was not involved in the patient's management. Aleena Encarnacion N.P. DR: Nikko JOB#: [id number] CC: PEDRO
--- NOTE | 2016-08-10 13:30 | Cardiology Report ---
APPROVED REPORT EKG Measurement Heart [id number] CO [id number] Normal sinus rhythm Abnormal ECG
--- NOTE | 2016-08-15 10:10 | Diagnostic Imaging Report ---
Indication: Shortness of breath, tachypnea Technique: Single portable AP view of the chest. Findings: Comparison: None. Suboptimal inspiration limits evaluation. The bones and extra pulmonary soft tissues, cardiomediastinal silhouette, pulmonary vasculature, visualized pulmonary parenchyma and pleural surfaces are unremarkable. IMPRESSION: Negative portable AP chest, limited as described. Upright PA and lateral chest radiographs with better inspiratory effort and optimal technique recommended for more complete evaluation..
== END 2016-08-08 17:12 | disposition home health service (06) | DRG 469 ==
LOC: SDSOVERFLO 05:16 → 3E 11:14 → 2W 07-31 20:49 → 3E 08-02 02:09 → 2W 08-02 13:32
PROC: 0SRC0J9 Replacement of Right Knee Joint with Synthetic Substitute, Cemented, Open Approach (ICD-10-PCS; principal; 2016-07-30 07:00)
DX: M17.11 Unilateral primary osteoarthritis, right knee (principal); I21.4 Non-ST elevation (NSTEMI) myocardial infarction; I50.31 Acute diastolic (congestive) heart failure; Z68.41 Body mass index [BMI] 40.0-44.9, adult; I26.99 Other pulmonary embolism without acute cor pulmonale; Z83.2 Family history of diseases of the blood and blood-forming organs and certain disorders involving the immune mechanism; Z79.01 Long term (current) use of anticoagulants; I10 Essential (primary) hypertension; R09.02 Hypoxemia; Z87.891 Personal history of nicotine dependence; M93.961 Osteochondropathy, unspecified, right lower leg; E87.6 Hypokalemia; D50.0 Iron deficiency anemia secondary to blood loss (chronic); E66.9 Obesity, unspecified; R79.1 Abnormal coagulation profile
CPT/HCPCS: 36415; 36600; 71010; 71275; 80048; 80053; 80061; 81241; 82105; 82248; 82378; 82565; 82607; 82728; 82746; 82803; 83020; 83540; 83550; 83615; 83735; 83880; 84153; 84154; 84484; 85025; 85300; 85303; 85306; 85379; 85610; 85613; 85651; 85730; 86300; 86301; 86431; 86703; 86705; 86709; 86803; 86850; 86900; 86901; 87081; 87340; 93005; 93306; 93970; 94003; 94150; 94640; 94664; 94760; C9399; J2180; J2250; J2405; J7620; J8499